=== PATIENT | male | born 1950 | race Caucasian/White ===

== ENCOUNTER 2020-11-29 09:44 | Observation (INO) | payer MEDICARE, SELFPAY ==
[2020-11-29] VITALS (14 sets, daily range): BP systolic 98–176; BP diastolic 55–93; PULSE 59–82; RESP 12–20; TEMP 36.9–37.2; O2SAT 96–100; BMI 20.7; BMI 19.8
--- NOTE | 2020-11-29 09:45 | ECG_ITS ---
APPROVED REPORT Exam: Resting ECG HR:62 bpm ECG Measurements Heart Rate 62 AXES OR 142 P 67 QRSd 104 QRS 61 QT 382 T 63 QTc 387 Conclusion Normal sinus rhythm Moderate voltage criteria for LVH, may be normal variant Borderline ECG Electronically signed by : Sumit Garza, 11/29/2020 17:19:00
--- NOTE | 2020-11-29 09:49 | XR_ITS ---
PROCEDURE: XR CHEST PORTABLE CLINICAL HISTORY: chest pain Left-sided chest pain COMPARISON: No exams were available for comparison FINDINGS: The cardiomediastinal silhouette and pulmonary vascularity are within normal limits. COPD changes. No lobar consolidation or collapse. Calcification noted in the carotid arteries nonspecific. No acute bony abnormalities. IMPRESSION: No acute findings. Dictated by: Monster Bai MD 11/29/2020 12:19 Monster Bai MD in [place] 11/29/2020 12:19
[2020-11-29 10:08] LABS: Basophils % 0.5 % (0.1-2.0); Eosinophils # 0.1 K/mm3 (0.0-0.4); Eosinophils % 0.8 % (0.1-12.0); Hematocrit 41.1 % (42.0-52.0); Hemoglobin 14.1 g/dL (14.1-18.0); Lymphocytes # 1.7 K/mm3 (0.7-4.5); Lymphocytes % 19.6 % (10-50); Mean Corpuscular HGB Conc 34.3 g/dL (31.8-35.4); Mean Corpuscular Hemoglobin 32.5 pg (27.0-31.2); Mean Corpuscular Volume 94.9 fl (80-94); Mean Platelet Volume 7.9 fl (7.4-10.4); Monocytes # 0.8 K/mm3 (0.1-1.0); Monocytes % 8.8 % (1.7-9.3); Neutrophils # 6.1 K/mm3 (1.8-7.8); Neutrophils % 70.4 % (37.0-80.0); Platelet Count 200 K/mm3 (142-424); Red Blood Count 4.33 M/mm3 (4.60-6.20); Red Cell Distribution Width 12.4 % (11.5-17.5); White Blood Count 8.7 K/mm3 (4.8-10.8)
--- NOTE | 2020-11-29 10:11 | HMH.EDGENADL ---
ED Disposition Clinical Impression: Pulmonary infiltrate, Pleural effusion, Pulmonary nodule Pulmonary emboli Qualifiers: Pulmonary embolism type: unspecified Chronicity: acute Acute cor pulmonale presence: without acute cor pulmonale Qualified Code(s): I26.99 - Other pulmonary embolism without acute cor pulmonale Disposition: Admitted as Observation Condition on Discharge: [facility] Critical Care Time: No Attestation: On 11/29/20, the high probability of a clinically significant, sudden or life threatening deterioration of the following system(s) required my full and direct attention, intervention and personal management. The time I documented below is in addition to time spent performing reported procedures but includes the following listed in this critical care notation. Medical Decision Making - Michael Inquiry Pt receiving controlled substance: No Vital Signs: 11/29/20 09:45 11/29/20 10:30 11/29/20 11:30 Temperature 98.9 F Temperature Source Oral Pulse Rate Pulse Rate [Left Radial] 69 59 L 67 Respiratory Rate 18 13 17 Blood Pressure Blood Pressure [Left Arm] 166/93 H 169/89 H 173/88 H Blood Pressure Mean [Left Arm] 117 115 116 Blood Pressure Source Blood Pressure Source [Left Arm] Automatic Cuff Automatic Cuff Automatic Cuff Blood Pressure Position Blood Pressure Position [Left Arm] Sitting Supine Supine 02 Sat by Pulse Oximetry 97 97 97 Oxygen Delivery Method Room Air Room Air Room Air 11/29/20 12:00 11/29/20 13:30 11/29/20 15:00 Temperature Temperature Source Pulse Rate Pulse Rate [Left Radial] 62 82 63 Respiratory Rate 12 13 Blood Pressure Blood Pressure [Left Arm] 143/77 H 98/55 L 144/86 H Blood Pressure Mean [Left Arm] 99 69 105 Blood Pressure Source Blood Pressure Source [Left Arm] Automatic Cuff Automatic Cuff Blood Pressure Position Blood Pressure Position [Left Arm] Supine Supine 02 Sat by Pulse Oximetry 96 100 97 Oxygen Delivery Method Room Air Room Air Room Air 11/29/20 15:30 11/29/20 16:00 11/29/20 16:30 Temperature Temperature Source Pulse Rate Pulse Rate [Left Radial] 81 61 66 Respiratory Rate 18 20 18 Blood Pressure Blood Pressure [Left Arm] 148/79 H Blood Pressure Mean [Left Arm] 102 Blood Pressure Source Blood Pressure Source [Left Arm] Blood Pressure Position Blood Pressure Position [Left Arm] 02 Sat by Pulse Oximetry 100 96 97 Oxygen Delivery Method Room Air Room Air Room Air 11/29/20 16:48 11/29/20 17:00 Temperature 98.7 F Temperature Source Oral Pulse Rate 59 L Pulse Rate [Left Radial] Respiratory Rate 20 Blood Pressure 151/80 H Blood Pressure [Left Arm] Blood Pressure Mean [Left Arm] Blood Pressure Source Automatic Cuff Blood Pressure Source [Left Arm] Blood Pressure Position Sitting Blood Pressure Position [Left Arm] 02 Sat by Pulse Oximetry Oxygen Delivery Method Room Air Room Air - Lab Data Lab Results 11/29/20 09:45: WBC 8.7, RBC 4.33 L, Hgb 14.1, Hct 41.1 L, MCV 94.9 H, MCH 32.5 H, MCHC 34.3, RDW 12.4, Plt Count 200, MPV 7.9, Neut % (Auto) 70.4, Lymph % (Auto) 19.6, [place] % (Auto) 8.8, Eos % (Auto) 0.8, Baso % (Auto) 0.5, Neut # (Auto) 6.1, Lymph # (Auto) 1.7, [place] # (Auto) 0.8, Eos # (Auto) 0.1, Baso # (Auto) 0.0 11/29/20 09:45: Sodium 131 L, Potassium 4.4, Chloride 97 L, Carbon Dioxide 28, Anion Gap 10.4, BUN 10, Creatinine 0.70, Estimated Creat Clear 65, Estimated GFR 112, Est GFR ( Amer) 135, Glucose 118 H, Calcium 9.7, Total Bilirubin 1.6 H, AST 39, ALT 21, Alkaline Phosphatase 74, Troponin I < 0.01, Total Protein 8.0, Albumin 4.5, Globulin 3.5 H, Albumin/Globulin Ratio 1.3 11/29/20 11:26: D-Dimer 1.89 H 11/29/20 13:01: Troponin I < 0.01 11/29/20 13:45: Chlamy pneumoniae PCR Not detected, Adenovirus (PCR) Not detected, B. pertussis DNA (PCR) Not detected, Coronavirus OC43 (PCR) Not detected, Coronavirus HKU1 (PCR) Not detected, Coronavirus 229E (PC
[2020-11-29 10:12] LABS: Alanine Aminotransferase 21 U/L (12-78); Albumin Level 4.5 g/dl (3.5-5.0); Albumin/Globulin Ratio 1.3 (1.1-1.8); Alkaline Phosphatase 74 U/L (38-126); Anion Gap 10.4 mEq/L (5-15); Aspartate Amino Transferase 39 U/L (17-59); Bilirubin,Total 1.6 mg/dl (0.2-1.3); Blood Urea Nitrogen 10 mg/dl (9-20); Calcium 9.7 mg/dl (8.4-10.2); Carbon Dioxide 28 mmol/L (22.0-30.0); Chloride 97 mmol/L (98-107); Creatinine Clearance Estimated 65 mL/min (50-200); Estimated Glomerular Filt Rate 112 ml/min (>60); GFR (African American) 135 ML/MIN (>60); Globulin 3.5 g/dL (1.3-3.2); Glucose 118 mg/dl (74-100); Potassium 4.4 mmoL/L (3.5-5.1); Sodium 131 mmol/L (136-145)
[2020-11-29 10:28] LABS: Troponin I < 0.01 ng/ml (0.00-0.034)
[2020-11-29 11:47] LABS: D-Dimer 1.89 ug/mL (0.0-0.5)
--- NOTE | 2020-11-29 12:09 | CT_ITS ---
PROCEDURE: CT ANGIO CHEST CLINCIAL INDICATION: chest pain, elevated d-dimer COMPARISON: CR XR CHEST PORTABLE from 11/29/2020 TECHNIQUE: IV Contrast: 70ML Isovue 370 Axial images obtained with sagittal and coronal reformats. All CT scans at the facility use one or more dose reduction, viz: automated exposure control, ma/kV adjustment per patient size (including targeted exams where dose is matched to indication, i.e. head), or iterative reconstruction technique. FINDINGS: No large central pulmonary emboli are evident. However, there are filling defects present within the peripheral aspect of a subsegmental branch in the posterior basilar segment of the left lower lobe. Series 2 image two hundred forty-nine through 259 and also within the subsegmental branch within the left upper lobe posteriorly image 204 series 2 and 225 to 241. Small segmental pulmonary embolus present within the right upper lobe anterior segment image 211 series 2. No evidence of aortic aneurysm or dissection. No mediastinal or hilar mass. Coronary artery calcifications noted. COPD changes with scattered areas of scarring noncalcified 6 mm nodules present in the right upper lobe anteriorly series 3, image 38 there is evidence of old granulomatous disease. Atelectatic changes are present in the lower lobes posteriorly. There is a 3 mm noncalcified nodule in the left upper lobe centrally at the apex image 18 There is a small left pleural effusion with patchy airspace disease in the left lower lobe suspicious for mild pneumonitis. There are mild degenerative changes in the thoracic spine. Small nodes are present in the axilla. IMPRESSION: 1. There are small bilateral pulmonary emboli noted. 2. COPD changes with indeterminate 6 mm right upper lobe nodule. Suggest 6 month follow-up 3. Small left effusion with patchy infiltrate in the left lower lobe posteriorly Dictated by: Monster Bai MD 11/29/2020 12:55 Monster Bai MD in [place] 11/29/2020 12:55
[2020-11-29 13:42] LABS: Troponin I < 0.01 ng/ml (0.00-0.034)
[2020-11-29 13:55] LABS: Adenovirus,PCR Not Detected (NotDetected); Bordetella Pertussis Not Detected (NotDetected); Chlamydophila Pneumoniae, PCR Not Detected (NotDetected); Coronavirus 19, PCR Not Detected (NotDetected); Coronavirus 229E Not Detected (NotDetected); Coronavirus NL63 Not Detected (NotDetected); Coronavirus OC43 Not Detected (NotDetected); Coronovirus HKU1,PCR Not Detected (NotDetected); Human Metapneumovirus Not Detected (NotDetected); Influenza A, PCR Not Detected (NotDetected); Influenza AH1, 2009 Not Detected (NotDetected); Influenza AH1, PCR Not Detected (NotDetected); Influenza AH3,PCR Not Detected (NotDetected); Influenza B, PCR Not Detected (NotDetected); Mycoplasma Pneumoniae, PCR Not Detected (NotDetected); Parainfluenza 1, PCR Not Detected (NotDetected); Parainfluenza 2, PCR Not Detected (NotDetected); Parainfluenza 3, PCR Not Detected (NotDetected); Parainfluenza 4, PCR Not Detected (NotDetected); Respiratory Syncytial Virus Not Detected (NotDetected); Rhinovirus/Enterovirus Not Detected (NotDetected)
--- NOTE | 2020-11-29 16:16 | HMH.PHAINT ---
MEDICATION RECONCILIATION COMPLETED ON PATIENT USING EXTERNAL FILL HISTORY FROM PHARMACY. -FAY SHETTY, PREETID
[2020-11-29 16:41] LABS: Troponin I < 0.01 ng/ml (0.00-0.034)
[2020-11-30] VITALS: BP 150/73; PULSE 60; PULSE 64; RESP 16; TEMP 36.8; O2SAT 97
[2020-11-30 04:00] VITALS: BP 132/73; PULSE 60; PULSE 62; RESP 16; TEMP 36.9; O2SAT 98
[2020-11-30 06:07] VITALS: BMI 20.4
[2020-11-30 06:58] LABS: Eosinophils # 0.1 K/mm3 (0.0-0.4); Neutrophils # 4.5 K/mm3 (1.8-7.8); White Blood Count 7.3 K/mm3 (4.8-10.8)
[2020-11-30 07:06] LABS: Basophils # 0.1 K/mm3 (0-0.2); Basophils % 0.7 % (0.1-2.0); Eosinophils % 1.5 % (0.1-12.0); Hematocrit 38.1 % (42.0-52.0); Lymphocytes # 1.9 K/mm3 (0.7-4.5); Lymphocytes % 25.9 % (10-50); Mean Corpuscular HGB Conc 33.3 g/dL (31.8-35.4); Mean Corpuscular Hemoglobin 31.5 pg (27.0-31.2); Mean Corpuscular Volume 94.7 fl (80-94); Mean Platelet Volume 7.9 fl (7.4-10.4); Monocytes # 0.8 K/mm3 (0.1-1.0); Monocytes % 10.3 % (1.7-9.3); Neutrophils % 61.6 % (37.0-80.0); Platelet Count 177 K/mm3 (142-424); Red Blood Count 4.03 M/mm3 (4.60-6.20); Red Cell Distribution Width 12.5 % (11.5-17.5)
[2020-11-30 07:16] LABS: Alanine Aminotransferase 14 U/L (12-78); Albumin Level 3.4 g/dl (3.5-5.0); Albumin/Globulin Ratio 1.1 (1.1-1.8); Alkaline Phosphatase 61 U/L (38-126); Anion Gap 5.2 mEq/L (5-15); Aspartate Amino Transferase 27 U/L (17-59); Bilirubin,Total 0.7 mg/dl (0.2-1.3); Blood Urea Nitrogen 13 mg/dl (9-20); Calcium 8.8 mg/dl (8.4-10.2); Carbon Dioxide 29 mmol/L (22.0-30.0); Chloride 100 mmol/L (98-107); Creatinine Clearance Estimated 64 mL/min (50-200); Estimated Glomerular Filt Rate 96 ml/min (>60); GFR (African American) 116 ML/MIN (>60); Globulin 3.1 g/dL (1.3-3.2); Glucose 104 mg/dl (74-100); Potassium 4.2 mmoL/L (3.5-5.1); Sodium 130 mmol/L (136-145); Total Protein,Serum 6.5 g/dl (6.3-8.2)
[2020-11-30 07:19] LABS: Hemoglobin 12.7 g/dL (14.1-18.0)
[2020-11-30 08:00] VITALS: BP 138/68; PULSE 50; PULSE 62; RESP 18; TEMP 36.9; O2SAT 95; O2SAT 96
--- NOTE | 2020-11-30 08:23 | HMH.HPDC ---
General - General Admission date:: 11/29/20 Discharge date: 11/30/20 *Admission Date: 11/29/20 *Chief complaint: Dyspnea and cough *History of present illness: 70-year-old white male with history of heart murmur and hypertension who follows with Dr. Kohler in [place] on a regular basis for his blood pressure, has no history of hematologic issues or blood clotting, but came to the emergency department with cough, congestion, found to have patchy infiltrate in the left lower lung field. D-dimer was elevated and he was found to have multiple subsegmental PEs on CTA. On further questioning he notes that his sister has told him that she is a carrier of factor V Leiden deficiency and that her son has the disease as well. He notes no previous episodes of venous thromboembolism. Patient was admitted overnight for Lovenox and Xarelto administration. [facility] History I have reviewed the patient's past medical history: Yes Medical History: Reports:: Hypertension, Palpitations Denies:: Cancer, Diabetes Mellitus Type 1, Diabetes Mellitus Type 2, MRSA *Have you ever received a pneumonia vaccine?: No *Have you received a flu vaccine this season?: No Other Surgeries: Yes: No Previous Surgery Amputation: No - *Social History Last grade of school completed: Some college Smoking Status: Current every day smoker Tobacco Type: cigars # Packs/Day (cigarettes): 0 Alcohol Intake: current Alcohol Intake Frequency:: 3 or more drinks per day *Occupational Status:: employed Household Members: none *Travel in the last 8 weeks: None Family Hx:: Tuberculosis, Other Review of Systems - Review of Systems Review of systems:: pertinent systems reviewed and negative unless documented below No GI symptoms, minimal dyspnea but improving. Otherwise 10 point review of systems negative Exam Vital signs and Labs for Last 24 Hours: Temp Pulse Resp BP Pulse Ox 98.5 F 62 18 138/68 96 11/30/20 08:00 11/30/20 08:00 11/30/20 08:00 11/30/20 08:00 11/30/20 08:00 Laboratory Results - last 24 hr 11/29/20 09:45: WBC 8.7, RBC 4.33 L, Hgb 14.1, Hct 41.1 L, MCV 94.9 H, MCH 32.5 H, MCHC 34.3, RDW 12.4, Plt Count 200, MPV 7.9, Neut % (Auto) 70.4, Lymph % (Auto) 19.6, [place] % (Auto) 8.8, Eos % (Auto) 0.8, Baso % (Auto) 0.5, Neut # (Auto) 6.1, Lymph # (Auto) 1.7, [place] # (Auto) 0.8, Eos # (Auto) 0.1, Baso # (Auto) 0.0 11/29/20 09:45: Sodium 131 L, Potassium 4.4, Chloride 97 L, Carbon Dioxide 28, Anion Gap 10.4, BUN 10, Creatinine 0.70, Estimated Creat Clear 65, Estimated GFR 112, Est GFR ( Amer) 135, Glucose 118 H, Calcium 9.7, Total Bilirubin 1.6 H, AST 39, ALT 21, Alkaline Phosphatase 74, Troponin I < 0.01, Total Protein 8.0, Albumin 4.5, Globulin 3.5 H, Albumin/Globulin Ratio 1.3 11/29/20 11:26: D-Dimer 1.89 H 11/29/20 13:01: Troponin I < 0.01 11/29/20 13:45: Chlamy pneumoniae PCR Not detected, Adenovirus (PCR) Not detected, B. pertussis DNA (PCR) Not detected, Coronavirus OC43 (PCR) Not detected, Coronavirus HKU1 (PCR) Not detected, Coronavirus 229E (PCR) Not detected, SARS-CoV-2 (PCR) Not detected, Coronavirus NL63 (PCR) Not detected, Human Metapneumovir PCR Not detected, Influenza A (H1) PCR Not detected, Influ A (H1N1/09) PCR Not detected, Influenza A (H3) PCR Not detected, Influenza Type A (PCR) Not detected, Influenza Type B (PCR) Not detected, M. pneumoniae (PCR) Not detected, Parainfluenza 1 (PCR) Not detected, Parainfluenza 2 (PCR) Not detected, Parainfluenza 3 (PCR) Not detected, Parainfluenza 4 (PCR) Not detected, RSV (PCR) Not detected, Entero/Rhino (PCR) Not detected 11/29/20 16:07: Troponin I < 0.01 11/30/20 06:20: WBC 7.3, RBC 4.03 L, Hgb 12.7 L, Hct 38.1 L, MCV 94.7 H, MCH 31.5 H, MCHC 33.3, RDW 12.5, Plt Count 177, MPV 7.9, Neut % (Auto) 61.6, Lymph % (Auto) 25.9, [place] % (Auto) 10.3 H, Eos % (Auto) 1.5, Baso % (Auto) 0.7, Neut # (Auto) 4.5, Lymph # (Auto) 1.9, [place] # (Auto) 0.8, Eos # (Auto) 0.1, Baso # (Auto) 0.1 11/30/20 06:20: Sodium 130 L, [place]
[2020-12-02 17:54] LABS: Protein C Antigen 72 % (60-150)
[2020-12-03 04:47] LABS: Antithrombin Activity 73 % (75-135)
[2020-12-03 08:23] LABS: Anti-Thrombin III Antigen 57 % (72-124); Factor V Activity 107 % (70-150); Protein S Antigen, Total 54 % (60-150)
== END 2020-11-30 09:47 | disposition home or self-care (01) ==
LOC: ER 13:48 → 2ND 15:50
PROVIDERS: Internal Medicine Adolescent Medicine; Admitting Provider Internal Medicine Adolescent Medicine; Emergency Provider Emergency Medicine; Visit Provider Internal Medicine Adolescent Medicine
DX: I26.99 Other pulmonary embolism without acute cor pulmonale (principal); Z72.0 Tobacco use; R91.1 Solitary pulmonary nodule
CPT/HCPCS: 36415; 71045; 71275; 80053; 84484; 85025; 85220; 85300; 85301; 85302; 85305; 85378; 87581; 87633; 87798; 93005; 99284; G0378; J0456; Q9967

== ENCOUNTER → 2020-12-07 13:07 | Outpatient (CLI) | payer MEDICARE, SELFPAY | PROVIDERS: Visit Provider Internal Medicine Adolescent Medicine | DX: I26.93 Single subsegmental thrombotic pulmonary embolism without acute cor pulmonale (principal); Z83.2 Family history of diseases of the blood and blood-forming organs and certain disorders involving the immune mechanism | CPT/HCPCS: 36415; 81241 ==

== ENCOUNTER → 2020-12-21 14:57 | Outpatient (CLI) | payer MEDICARE, SELFPAY ==
[2020-12-21 16:09] LABS: Basophils % 0.6 % (0.1-2.0); Eosinophils % 0.5 % (0.1-12.0); Hematocrit 38.8 % (42.0-52.0); Hemoglobin 13.6 g/dL (14.1-18.0); Lymphocytes % 31.7 % (10-50); Mean Corpuscular HGB Conc 34.9 g/dL (31.8-35.4); Mean Corpuscular Hemoglobin 32.3 pg (27.0-31.2); Mean Corpuscular Volume 92.6 fl (80-94); Mean Platelet Volume 7.7 fl (7.4-10.4); Monocytes # 0.5 K/mm3 (0.1-1.0); Monocytes % 8.3 % (1.7-9.3); Neutrophils # 3.7 K/mm3 (1.8-7.8); Neutrophils % 58.8 % (37.0-80.0); Platelet Count 205 K/mm3 (142-424); Red Blood Count 4.19 M/mm3 (4.60-6.20); Red Cell Distribution Width 12.5 % (11.5-17.5); White Blood Count 6.3 K/mm3 (4.8-10.8)
[2020-12-21 16:41] LABS: Alanine Aminotransferase 17 U/L (12-78); Albumin Level 4.6 g/dl (3.5-5.0); Albumin/Globulin Ratio 1.5 (1.1-1.8); Alkaline Phosphatase 70 U/L (38-126); Anion Gap 11.9 mEq/L (5-15); Aspartate Amino Transferase 40 U/L (17-59); Bilirubin,Total 1.1 mg/dl (0.2-1.3); Blood Urea Nitrogen 13 mg/dl (9-20); Calcium 9.8 mg/dl (8.4-10.2); Carbon Dioxide 28 mmol/L (22.0-30.0); Chloride 91 mmol/L (98-107); Estimated Glomerular Filt Rate 96 ml/min (>60); GFR (African American) 116 ML/MIN (>60); Glucose 110 mg/dl (74-100); Potassium 4.9 mmoL/L (3.5-5.1); Sodium 126 mmol/L (136-145); Total Protein,Serum 7.6 g/dl (6.3-8.2)
[2020-12-21 17:11] LABS: Thyroid Stimulating Hormone 1.33 uIU/mL (0.465-4.68)
== END ==
PROVIDERS: Visit Provider Internal Medicine Adolescent Medicine
DX: I10 Essential (primary) hypertension (principal); I26.93 Single subsegmental thrombotic pulmonary embolism without acute cor pulmonale; I73.9 Peripheral vascular disease, unspecified
CPT/HCPCS: 36415; 80053; 83735; 84443; 85025

== ENCOUNTER → 2020-12-28 08:13 | Outpatient (CLI) | payer MEDICARE, SELFPAY ==
--- NOTE | 2020-12-28 08:17 | US_ITS ---
APPROVED REPORT Exam Type: Lower Extremity Segmental Pressures Drop Man: Mary Jo Lopez RVT Indications Claudication: Bilaterally Current Smoker CLAUDICATION Risk Factors Hypertension Current Smoker Pressures/Indices Right Indices Left Indices Brachial 136.00 mmHg Brachial 146.00 mmHg Low Thigh 174.00 mmHg 1.19 Low Thigh 179.00 mmHg 1.23 Calf 193.00 mmHg 1.32 Calf 192.00 mmHg 1.32 Ankle(PT) 174.00 mmHg 1.19 Ankle(PT) 178.00 mmHg 1.22 Ankle(DP) 174.00 mmHg 1.19 Ankle(DP) 181.00 mmHg 1.24 Digit 96.00 mmHg 0.66 Digit 106.00 mmHg 0.73 Findings RT ROSANNA:1.19 LT ROSANNA:1.24 RT TBI:0.66 LT TBI:0.73 NORMAL PULSES BILATERALLY NORMAL WAVEFORMS BILATERALLY Conclusion RT ROSANNA:1.19 LT ROSANNA:1.24 RT TBI:0.66 LT TBI:0.73 NORMAL PULSES BILATERALLY NORMAL WAVEFORMS BILATERALLY No evidence significant arterial disease throughout the right and left lower extremities as evidenced by normal resting PVR waveforms and normal resting indices. Electronically signed by : Monster Bai MD 01/02/2021 16:15:22
== END ==
PROVIDERS: PCP Internal Medicine Adolescent Medicine; Visit Provider Internal Medicine Adolescent Medicine
DX: I70.213 Atherosclerosis of native arteries of extremities with intermittent claudication, bilateral legs (principal)
CPT/HCPCS: 93923

== ENCOUNTER 2023-11-18 14:16 | Outpatient (CLI) | payer MEDICARE, SELFPAY ==
--- NOTE | 2023-11-18 14:44 | CT_ITS ---
PROCEDURE INFORMATION: Exam: CTA Chest With Contrast Exam date and time: 11/18/2023 4:15 PM Age: 73 years old Clinical indication: Other: Pe w/o acute cor pulmonale TECHNIQUE: Imaging protocol: Computed tomographic angiography of the chest with contrast. Exam focused on the arteries. 3D rendering (Not supervised by radiologist): MIP and/or 3D reconstructed images were created by the technologist. Radiation optimization: All CT scans at this facility use at least one of these dose optimization techniques: automated exposure control; mA and/or kV adjustment per patient size (includes targeted exams where dose is matched to clinical indication); or iterative reconstruction. Contrast material: ISOVUE; Contrast volume: 70 ml; Contrast route: INTRAVENOUS (IV); COMPARISON: CT ANGIO CHEST 11/29/2020 12:25 PM FINDINGS: Pulmonary arteries: No pulmonary emboli. Aorta: Ectasia of the ascending aorta measures 4.1 cm and is unchanged 11/29/2020. No aneurysmal dilatation or intimal dissection. Lungs: No airspace consolidation or nodules. Calcified granuloma in the right lower lobe. Pleural spaces: No pneumothorax. No pleural effusion. Heart: Left atrium is enlarged. Coronary arteries: Moderate number coronary artery calcifications. Lymph nodes: Calcified vero hepatis lymph nodes are present. Calcified lymph nodes in the right hilum and subcarinal mediastinum. Liver: Liver has a few small calcified granulomas. Spleen: Spleen has calcified granulomas and no mass or surrounding fluid. Bones/joints: Mild anterior compression fracture of T4 has no stranding of paravertebral fat and is of unknown age, but is an interval change since 11/29/2020. Old healed fractures of the posterior left 10th and 11th ribs. No acute fractures or focal bone lesions. Soft tissues: No soft tissue masses. IMPRESSION: 1. No pulmonary emboli. No aortic aneurysm or intimal dissection. 2. Ectasia of the ascending aorta measures 4.1 cm and is unchanged since 11/29/2020. CT scan follow-up in 2 years may be useful if clinically warranted. 3. Left atrial enlargement. 4. Mild compression fracture T4 is an interval change since 11/29/2020. 5. No acute findings in the chest. 6. Evidence of prior granulomatous infection as described above.
[2023-11-18 15:36] LABS: Blood Urea Nitrogen 10 mg/dl (9-20); Estimated Glomerular Filt Rate 95 ml/min (>60); GFR (African American) 115 ML/MIN (>60)
[2023-11-18] MEDS: SODIUM CHLORIDE 0.9% 10ML SYR (RAD ONLY) 10 ML IV (16:33)
[2023-11-18] MEDS: 0.9 % SODIUM CHLORIDE 50 ML VIAL IV (16:33)
[2023-11-18] MEDS: IOPAMIDOL-370 (76%);100ML BOTTLE 70 ML IV (16:33)
== END 2023-11-18 23:59 ==
PROVIDERS: PCP Internal Medicine Adolescent Medicine; Visit Provider Nurse Practitioner Family
DX: I26.99 Other pulmonary embolism without acute cor pulmonale (principal)
CPT/HCPCS: 36415; 71275; 82565; 84520; Q9967

== ENCOUNTER 2024-05-24 14:47 | Emergency (ER) | payer MEDICARE, SELFPAY ==
[2024-05-24] VITALS (8 sets, daily range): BP systolic 140–168; BP diastolic 71–97; PULSE 51–67; RESP 12–16; TEMP 36.7; O2SAT 97–98; BMI 19.8
--- NOTE | 2024-05-24 14:51 | HMH.EDGENADL ---
Discharge Plan Disposition Patient Disposition: Home, Self-Care Condition: Good Prescriptions Prescriptions: No Action lisinopril 10 MG tablet 10 mg PO DAILY doxycycline hyclate 100 MG capsule 100 mg PO BID 10 Days Qty: 20 0RF rivaroxaban 15 MG tablet 15 mg PO BID Qty: 42 0RF Referrals Follow up/Referrals: Sumit Garza MD [Primary Care Provider] - See instructions Activity Restrictions/Add. Instructions Additional Instructions/Restrictions: Please call Dr. Garza's office and schedule follow-up appointment within 48 hours for recheck of your sodium, and also for reinitiation of chronic anticoagulation for your factor V Leiden deficiency. Please call and schedule follow-up with your organic chemistry teacher for further investigation of any potential cardiac causes of your dizziness as well as further evaluation of your enlarging ascending aortic artery as it can kill you if not managed appropriately. Return to ER for any worsening signs or symptoms as needed. Clinical Impressions Clinical Impression: Dizziness, Hyponatremia Instructions Patient Instructions: Combating Dizziness in Older Adults, DI for Hyponatremia Print Language Print Language: Serbian Discharge ED Provider: Dashawn Fitzgerald General Adult HPI <HAYDEN Marroquin - Last Filed: 05/24/24 17:46> General Chief complaint: Recheck/Abnormal Lab/Rx Stated complaint: high b/p, dizzy Time Seen by Provider: 05/24/24 14:51 History of Present Illness HPI narrative: Patient presents for evaluation of initially complaint of high blood pressure and dizziness. Patient states that he thinks his blood pressure is up because he is dizzy. Patient does have a history of hypertension and has been compliant with his medications per his report. Patient reports that for the last few days he has had dizziness particularly when he changes positions from lying to sitting or sitting to standing but has had no nausea vomiting. Patient has had previous episodes of this type of dizziness that have lasted a couple of days several years apart. 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 However several family members including his son and grandson have factor V Leiden deficiency which raises the question whether the patient has it as well. He has never been worked up for a coagulation disorder previously. He also reportedly has a bad heart valve that has been recommended to him to be fixed surgically however patient has deferred that because he does not feel bad . Related Data Home Medications ?Medication ?Instructions ?Recorded ?Confirmed lisinopril 10 mg tablet 10 mg PO DAILY Hypertension 11/29/20 11/29/20 Previous Rx's ?Medication ?Instructions ?Recorded doxycycline hyclate 100 mg capsule 100 mg PO BID 10 days #20 caps 11/30/20 rivaroxaban 15 mg tablet 15 mg PO BID #42 tabs 11/30/20 Allergies Allergy/AdvReac Type Severity Reaction Status Date / Time No Known Allergies Allergy Verified 11/29/20 09:49 PFSH <HAYDEN Marroquin - Last Filed: 05/24/24 17:46> [facility] Disclaimer: The information contained in this section may have been updated after the patient was seen, as this information can be updated by other users. Social History Smoking Status: Current every day smoker tobacco type: cigars alcohol intake: current alcohol intake frequency: 3 or more drinks per day current occupational status: employed Travel in the last 8 weeks: None household members: none <HAYDEN Marroquin - Last Filed: 05/24/24 17:46> ROS Obtained: Yes Systems reviewed as appropriate & no additional complaints except as documented Physical Exam <HAYDEN Marroquin - Last Filed: 05/24/24 17:46> General General appearance: alert and in no apparent distress Head Head exam: atraumatic and normal inspection Eye Eye exam: Present normal appearance, PERRL and EOMI; Absent m
--- NOTE | 2024-05-24 15:02 | CT_ITS ---
PROCEDURE INFORMATION: Exam: CT Chest Without Contrast; Diagnostic Exam date and time: 05/24/2024 3:11 PM Age: 73 years old Clinical indication: Other: Dizziness, high BP TECHNIQUE: Imaging protocol: Diagnostic computed tomography of the chest without contrast. Radiation optimization: All CT scans at this facility use at least one of these dose optimization techniques: automated exposure control; mA and/or kV adjustment per patient size (includes targeted exams where dose is matched to clinical indication); or iterative reconstruction. COMPARISON: 1. CT ANGIO CHEST PE PROTOCOL 11/18/2023 4:[address] ANGIO CHEST 11/29/2020 12:25 PM FINDINGS: Lungs: No lung nodules or airspace consolidation. Calcified granuloma in the right lower lobe. Pleural spaces: No pneumothorax. No pleural effusion. Heart: Left atrial enlargement and left ventricular enlargement. Coronary arteries: Coronary stent in the LAD. Esophagus: No wall thickening or abnormal luminal dilatation. Lymph nodes: Calcified subcarinal and right hilar lymph nodes. Calcified vero hepatis lymph nodes are again noted. Vasculature: Ectasia of the ascending aorta measures 4.1 cm compared to 3.8 cm on 11/18/2023 and 3.6 cm on 11/29/2020. Liver: The liver has a few sub cm low-density nodules that probably represent cysts calcified granulomas are present in the liver and spleen. Bones/joints: Mild anterior wedge fracture of T5 is unchanged since 11/18/2023. Soft tissues: No chest wall masses. IMPRESSION: 1. Ectasia of the ascending aorta measures 4.1 cm compared to 3.8 cm on 11/18/2023 and 3.6 cm on 11/29/2020. Consider CTA of the aorta if clinically warranted. 2. No other acute findings or deleterious interval changes in the chest. 3. Left atrial enlargement and left ventricular enlargement. 4. Prior granulomatous infection. 5. A few sub cm probable liver cysts are unchanged.
--- NOTE | 2024-05-24 15:11 | PC.NURSE ---
pt TO RAD
--- NOTE | 2024-05-24 15:21 | CT_ITS ---
PROCEDURE INFORMATION: Exam: CTA Head With Contrast, Arteriography Exam date and time: 05/24/2024 3:58 PM Age: 73 years old Clinical indication: Dizziness and giddiness; Additional info: Dizziness history of blood clots TECHNIQUE: Imaging protocol: Computed tomographic angiography of the head with contrast. Exam focused on the arteries. 3D rendering (Not supervised by radiologist): MIP and/or 3D reconstructed images were created by the technologist. Radiation optimization: All CT scans at this facility use at least one of these dose optimization techniques: automated exposure control; mA and/or kV adjustment per patient size (includes targeted exams where dose is matched to clinical indication); or iterative reconstruction. Contrast material: ISOVUE 370; Contrast volume: 89 ml; Contrast route: INTRAVENOUS (IV); COMPARISON: CT VENOGRAM HEAD 05/24/2024 3:58 PM FINDINGS: ANTERIOR CIRCULATION: Right internal carotid artery: Intracranial segment is patent with no significant stenosis. No aneurysm. Right middle cerebral artery: No occlusion or significant stenosis. No aneurysm. Right anterior cerebral artery: No occlusion or significant stenosis. No aneurysm. Left internal carotid artery: Intracranial segment is patent with no significant stenosis. No aneurysm. Left middle cerebral artery: No occlusion or significant stenosis. No aneurysm. Left anterior cerebral artery: No occlusion or significant stenosis. No aneurysm. POSTERIOR CIRCULATION: Right vertebral artery: No occlusion or significant stenosis. No aneurysm. Left vertebral artery: No occlusion or significant stenosis. No aneurysm. Basilar artery: No occlusion or significant stenosis. No aneurysm. Right posterior cerebral artery: No occlusion or significant stenosis. No aneurysm. Left posterior cerebral artery: No occlusion or significant stenosis. No aneurysm. Brain: No definite mass, mass effect, or midline shift. Cerebral ventricles: No ventriculomegaly. Bones/joints: Unremarkable. No acute fracture. Soft tissues: Unremarkable. IMPRESSION: No large vessel stenosis or occlusion.
--- NOTE | 2024-05-24 15:21 | CT_ITS ---
PROCEDURE INFORMATION: Exam: CTA Head With Contrast, Venography Exam date and time: 05/24/2024 3:58 PM Age: 73 years old Clinical indication: Dizziness and giddiness; Additional info: Dizziness history of blood clots TECHNIQUE: Imaging protocol: Computed tomography angiography of the head with contrast. Exam focused on the veins. 3D rendering (Not supervised by radiologist): MIP and/or 3D reconstructed images were created by the technologist. Radiation optimization: All CT scans at this facility use at least one of these dose optimization techniques: automated exposure control; mA and/or kV adjustment per patient size (includes targeted exams where dose is matched to clinical indication); or iterative reconstruction. Contrast material: ISOVUE 370; Contrast volume: 89 ml; Contrast route: INTRAVENOUS (IV); COMPARISON: CT ANGIO HEAD 05/24/2024 3:58 PM FINDINGS: Superior sagittal sinus: Patent. Straight sinus: Patent. Transverse sinuses: Patent. Sigmoid sinuses: Patent. Internal jugular veins: Limited visualized internal jugular veins are patent. Brain: No definite mass, mass effect, or midline shift. Cerebral ventricles: No ventriculomegaly. Soft tissues: Unremarkable. IMPRESSION: No venous thrombosis.
--- NOTE | 2024-05-24 15:28 | PC.NURSE ---
PT BACK FROM RAD. STAFF AT BS
--- NOTE | 2024-05-24 15:29 | ECG_ITS ---
APPROVED REPORT Exam: Resting ECG HR:53 bpm ECG Measurements Heart Rate 53 AXES OR 168 P 66 QRSd 106 QRS 71 QT 410 T 71 QTc 392 Conclusion Sinus bradycardia Electronically signed by : VIKTORIA HORTON, 05/24/2024 19:52:25
[2024-05-24 15:36] LABS: Basophils % 0.5 % (0.1-2.0); Eosinophils # 0.1 K/mm3 (0.0-0.4); Eosinophils % 1.8 % (0.1-12.0); Hematocrit 39.4 % (42.0-52.0); Lymphocytes % 32.6 % (10-50); Mean Corpuscular Volume 97.1 fl (80-94); Mean Platelet Volume 8.3 fl (7.4-10.4); Monocytes # 0.5 K/mm3 (0.1-1.0); Monocytes % 7.6 % (1.7-9.3); Neutrophils # 3.6 K/mm3 (1.8-7.8); Neutrophils % 57.5 % (37.0-80.0); Platelet Count 188 K/mm3 (142-424); Red Blood Count 4.05 M/mm3 (4.60-6.20); Red Cell Distribution Width 12.9 % (11.5-17.5); White Blood Count 6.2 K/mm3 (4.8-10.8)
[2024-05-24 15:37] LABS: Chloride 102 mmol/L (98-107)
[2024-05-24 15:38] LABS: Albumin Level 3.7 g/dl (3.5-5.0); Potassium 4.2 mmoL/L (3.5-5.1); Sodium 130 mmol/L (136-145)
[2024-05-24 15:40] LABS: Alanine Aminotransferase 17 U/L (12-78); Aspartate Amino Transferase 30 U/L (17-59); Blood Urea Nitrogen 13 mg/dl (9-20); Creatinine Clearance Estimated 59 mL/min (50-200); Estimated Glomerular Filt Rate 111 ml/min (>60); GFR (African American) 134 ML/MIN (>60)
[2024-05-24 15:41] LABS: Albumin/Globulin Ratio 1.2 (1.1-1.8); Alkaline Phosphatase 59 U/L (38-126); Anion Gap 7.2 mEq/L (5-15); Bilirubin,Total 1.2 mg/dl (0.2-1.3); Calcium 8.4 mg/dl (8.4-10.2); Carbon Dioxide 25 mmol/L (22.0-30.0); Glucose 175 mg/dl (74-100); Magnesium 1.9 mg/dl (1.6-2.3); Total Protein,Serum 6.7 g/dl (6.3-8.2)
== END 2024-05-24 17:55 | disposition home or self-care (01) ==
PROVIDERS: Physician Assistant; Emergency Provider Emergency Medicine; PCP Internal Medicine Adolescent Medicine
DX: R42 Dizziness and giddiness (principal); E87.1 Hypo-osmolality and hyponatremia; I10 Essential (primary) hypertension; R00.1 Bradycardia, unspecified
CPT/HCPCS: 70496; 71250; 80053; 83735; 85025; 93005; 96361; 96374; 96375; 99285; J0131; J1100; J7120; Q9967

== ENCOUNTER 2025-04-26 15:22 | Observation (INO) | payer MEDICARE, SELFPAY ==
[2025-04-26] VITALS (8 sets, daily range): BP systolic 116–156; BP diastolic 61–91; PULSE 45–65; RESP 16–18; TEMP 36.6–36.7; O2SAT 95–100; BMI 19.8
--- NOTE | 2025-04-26 15:31 | CT_ITS ---
FINAL REPORT TECHNIQUE: Thin section axial images were obtained from skull base to vertex without contrast. Coronal reconstruction images were obtained from the axial data. Exam was performed using dose reduction techniques such as automated exposure control, adjustment of the mA and kV according to patient size, and use of iterative reconstruction technique. CLINICAL HISTORY: possible stroke, L facial numbness COMPARISON: none. FINDINGS: There is atrophy. No mass effect or midline shift. No intracranial hemorrhage. No hydrocephalus. Periventricular low density is likely related to changes of chronic small vessel ischemia. The basilar cisterns are preserved. The posterior fossa is without acute abnormality. The soft tissues are without acute abnormality. No acute osseous abnormality is identified. IMPRESSION: No acute intracranial abnormality. Atrophy and changes suggesting chronic small vessel ischemia. Reviewed, Interpreted and Dictated by Enid Price MD Transcribed by HAYDEN Mendez Authenticated and [facility]
--- NOTE | 2025-04-26 15:31 | CT_ITS ---
FINAL REPORT TECHNIQUE: Thin section axial images were obtained through the neck after contrast administration per CT angiogram protocol. Multiplanar reconstruction images were obtained from the axial data. Exam was performed using dose reduction technique. CLINICAL HISTORY: possible stroke, L facial numbness COMPARISON: None FINDINGS: CTA NECK: Aortic arch: There is a normal three-vessel configuration to the aortic arch. There is no significant stenosis of the great vessels at their origins. Right carotid artery: The right common carotid artery is patent without stenosis. There is calcification of the right carotid bulb and proximal right internal carotid artery with 10% stenosis. The remainder of the right internal carotid artery is patent to the skull base. Left carotid artery: The left common carotid artery is patent without stenosis. There is calcification at the bulb and proximal internal carotid artery with 0% stenosis. The remainder of of the internal carotid artery is patent to the skull base. Vertebral arteries: The vertebral arteries are patent bilaterally without stenosis. Other soft tissues: Nothing acute. IMPRESSION: 10% stenosis on the right and 0% stenosis on the left with no large vessel occlusion. Reviewed, Interpreted and Dictated by Enid Price MD Transcribed by Kimberly Mccray Authenticated and [facility]
--- NOTE | 2025-04-26 15:31 | CT_ITS ---
FINAL REPORT TECHNIQUE: Thin section axial images are obtained through the brain after intravenous contrast injection. Multiplanar reconstructions were obtained from the axial data. Exam was performed using dose reduction techniques such as automated exposure control, adjustment of the mA and kV according to patient size, and use of iterative reconstruction technique. CLINICAL HISTORY: possible stroke, L facial numbness COMPARISON: None FINDINGS: The intracerebral portions of the carotid arteries are patent. The anterior and middle cerebral arteries are patent. The posterior cerebral arteries arise from the basilar artery. They are patent. [place] is intact. The basilar artery is patent. The vertebral arteries are patent. There is no significant stenosis, aneurysm, or AVM. IMPRESSION: Unremarkable CT angiogram of the intracerebral vasculature. Reviewed, Interpreted and Dictated by Enid Price MD Transcribed by Kimberly Mccray Authenticated and . [facility]
--- NOTE | 2025-04-26 15:34 | HMH.EDGENADL ---
Discharge Plan Disposition Patient Disposition: Admitted Clinical Impressions Clinical Impression: Stroke-like symptom Discharge ED Provider: Cirilo Tidwell General Adult HPI General Chief complaint: Neuro Symptoms/Deficit Stated complaint: Numbness in left side lips Time Seen by Provider: 04/26/25 15:25 History of Present Illness HPI narrative: Patient is a 74-year-old male with past medical history of previous pulmonary embolism on anticoagulation who presents emergency department for evaluation of perioral numbness. About a month ago he had an episode of left perioral numbness and left upper extremity numbness which spontaneously resolved after about 10 minutes. Over the course of the last week he has had stuttering left-sided perioral numbness that is being, concerning to him because been present here for continued evaluation. No visual complaints no headache, no right-sided problems no motor weakness no gait difficulties no speech difficulties no other acute complaints at this time. Please note that above description of symptoms, in this electronic medical record under categorization of recalled from ER triage doctor by RN are reflective of an initial nursing assessment, however, is not reflective of my full history and physical exam that was personally taken and clarified. Consequentially, this preceding description of symptoms, which may include the patient's categorized chief complaint in the EMR, do not reflect my personal clinical impression, and the ultimate description of history of present illness and patient stated complaints should be deferred to this section of the note. Unless stated otherwise or congruent with this section of the note, additional signs, symptoms, or incongruence should be interpreted as inaccurate with my clinical impression. Related Data Home Medications ?Medication ?Instructions ?Recorded ?Confirmed lisinopril 10 mg tablet 10 mg PO DAILY Hypertension 11/29/20 11/29/20 losartan 100 1 tab PO DAILY 04/26/25 04/26/25 mg-hydrochlorothiazide 25 mg tablet sildenafil 100 mg tablet 100 mg PO NEEDED PRN Sexual 04/26/25 04/26/25 Activity Previous Rx's ?Medication ?Instructions ?Recorded doxycycline hyclate 100 mg capsule 100 mg PO BID 10 days #20 caps 11/30/20 rivaroxaban 15 mg tablet 15 mg PO BID #42 tabs 11/30/20 Allergies Allergy/AdvReac Type Severity Reaction Status Date / Time No Known Allergies Allergy Verified 11/29/20 09:49 [facility] Disclaimer: The information contained in this section may have been updated after the patient was seen, as this information can be updated by other users. Social History Smoking Status: Current every day smoker tobacco type: cigars alcohol intake: current alcohol intake frequency: 3 or more drinks per day current occupational status: employed Travel in the last 8 weeks?: None household members: none Have you lived/traveled outside US in past 30 days?: No Contact w/someone who lives/traveled outside US past 30 days?: No Exposure to someone with infectious disease in past 14 days?: No Do you have a fever (greater than 100.4 F or 38 C)?: No Have you tested positive for COVID-19?: No Exposed to someone with COVID-19 in past 14 days?: No Do you have a sore throat?: No Do you have a cough?: No Do you have any weakness?: No Do you have any diarrhea?: No Are you experiencing any unusual bleeding?: No Do you have any muscle aches/pain?: No Do you have any abdominal pain?: No Are you experiencing loss of taste or smell?: No Other Medical History Have you received the Flu Vaccine for this season: No Have you received the Pneumonia Vaccine: No ROS Obtained: Yes Systems reviewed as appropriate & no additional complaints except as documented Physical Exam General General appearance: alert and in no apparent distress Head Head exam: atraumatic and normocephalic Eye Eye exam: Present PERRL and EOMI ENT ENT exam: Present mucous membranes moist Neck Neck exam: Present normal inspection Chest Chest inspection: Present normal inspection and symmetric chest wall rise Respiratory Respiratory exam: Present normal lung sounds bilaterally; Absent respiratory distress Cardiovascular Cardiovascular exam: Present regular rate and normal rhythm Abdominal Exam Abdominal exam: Present soft; Absent tenderness Extremities Exam Extremities exam: Present normal inspection Neurological Exam Neurological exam: Present alert, oriented X3 and normal gait; Absent CN II-XII intact ([place] sensation left mouth from midline around the left cheek involving the maxilla and mandible but does not extend all the way to the preauricular space.) or motor sensory deficit Psychiatric Psychiatric exam: Present normal affect Skin Skin exam: Present warm and dry Medical Decision Making Medical Records Screening: Per USPSTF and CDC recommendations, given the prevalence of disease in our region, it is our hospital?s policy to screen for HIV and viral Hepatitis for all patients aged 18 and over and those with ongoing risk factors. Michael Inquiry Pt receiving controlled substance: No Vital Signs: 04/26/25 15:24 04/26/25 16:01 04/26/25 16:30 Temperature 98.0 F Temperature Source Oral Pulse Rate 55 L 53 L Pulse Rate [Radial] 65 Respiratory Rate 18 Blood Pressure 121/61 116/71 Blood Pressure [Right Radial Artery] 148/78 H Blood Pressure Mean [Right Radial Artery] 101 Blood Pressure Source [Right Radial Artery] Automatic Cuff Blood Pressure Position [Right Radial Artery] Sitting 02 Sat by Pulse Oximetry 100 98 95 Oxygen Delivery Method Room Air 04/26/25 17:01 04/26/25 18:08 04/26/25 18:14 Temperature 97.9 F Temperature Source Pulse Rate 45 L 60 52 L Pulse Rate [Radial] Respiratory Rate 16 Blood Pressure 123/73 119/70 156/91 H Blood Pressure [Right Radial Artery] Blood Pressure Mean [Right Radial Artery] Blood Pressure Source [Right Radial Artery] Blood Pressure Position [Right Radial Artery] 02 Sat by Pulse Oximetry 98 99 Oxygen Delivery Method Lab Data Lab Results 04/26/25 15:36: WBC 7.3, RBC 4.00 L, Hgb 13.2 L, Hct 36.3 L, MCV 90.8, MCH 33.0 H, MCHC 36.4 H, RDW 11.8, Plt Count 220, MPV 9.8, Neut % (Auto) 55.3, Lymph % (Auto) 32.2, [place] % (Auto) 9.6 H, Eos % (Auto) 1.9, Baso % (Auto) 0.7, Neut # (Auto) 4.0, Lymph # (Auto) 2.4, [place] # (Auto) 0.7, Eos # (Auto) 0.1, Baso # (Auto) 0.1, PT 14.0 H, INR 1.28 H, APTT 33.2 H, Sodium 128 L, Potassium 3.7, Chloride 92 L, Carbon Dioxide 31 H, Anion Gap 8.7, BUN 14, Creatinine 0.90, Estimated GFR 83, Est GFR ( Amer) 100, Glucose 165 H, Calcium 9.6, Total Bilirubin 0.8, AST 36, ALT 19, Alkaline Phosphatase 78, Troponin I < 0.01, Total Protein 7.5, Albumin 4.7, Globulin 2.8, Albumin/Globulin Ratio 1.7, Triglycerides 74, Cholesterol 206 H, LDL Cholesterol Direct 70.88 L, VLDL Cholesterol 15, HDL Cholesterol 104 H, Cholesterol/HDL Ratio 2.0, Plasma/Serum Alcohol < 10, HCV Ab ASHLEE w/Rflx PCR Qn Negative, HIV Ag/Ab Combo Qual Negative 04/26/25 16:44: Urine Color Yellow, Urine Appearance Clear, Urine pH 6.5, Ur Specific [place] <= 1.005, Urine Protein Negative, Urine Glucose (UA) 1+, Urine Ketones Negative, Urine Blood Negative, Urine Nitrate Negative, Urine Bilirubin Negative, Urine Urobilinogen 0.2, Ur Leukocyte Esterase Negative, Urine RBC Occasional, Urine WBC None, Ur Squamous Epith Cells None, Urine Bacteria Trace, Urine Opiates Screen Negative, Urine Methadone Screen Negative, Ur Barbituates Screen Negative, Ur Phencyclidine Scrn Negative, Ur Amphetamines Screen Negative, U Benzodiazepines Scrn Negative, Urine Cocaine Screen Negative, U Marijuana (THC) Screen Negative 04/26/25 15:36 04/26/25 15:36 Orders (Tests/Meds): ED MEDICATIONS Generic Name Dose Route Start Last Admin Trade Name Shady PRN Reason Stop Dose Admin Aspirin 81 mg 04/27/25 09:00 Aspirin Ec 81mg Tablet PO 05/27/25 08:59 DAILY BAO Atorvastatin Calcium 40 mg 04/26/25 21:00 Atorvastatin 40mg Tablet PO 05/26/25 20:59 HS BAO Enoxaparin Sodium 40 mg 04/27/25 09:00 Enoxaparin 40mg/0.4ml Syringe SUBCUT 05/27/25 08:59 DAILY BAO Miscellaneous 1 each 04/26/25 17:17 Consider Pt For Statin At Discharge-Stroke NOTAPPLIC 05/26/25 17:16 NEEDED PRN Reminder for med @discharge Sodium Chloride 10 ml 04/26/25 15:31 Sodium Chloride 0.9% 10ml Flush Syringe IV 05/26/25 15:30 NEEDED PRN Maintain IV Site Discontinued Medications Generic Name Dose Route Start Last Admin Trade Name Shady PRN Reason Stop Dose Admin Aspirin 81 mg 04/26/25 16:56 04/26/25 17:10 Aspirin 81mg Chewable Tablet PO 04/26/25 16:57 81 mg ONCE ONE Administration Iopamidol 80 ml 04/26/25 15:47 04/26/25 15:48 Iopamidol-370 (76%);100ml Bottle IV 04/26/25 15:48 80 ml ONCE ONE Administration Sodium Chloride 10 ml 04/26/25 15:47 04/26/25 15:48 Sodium Chloride 0.9% 10ml Syr (Rad Only) IV 04/26/25 15:48 10 ml ONCE ONE Administration Sodium Chloride 50 ml 04/26/25 15:47 04/26/25 15:48 0.9 % Sodium Chloride 50 Ml Vial IV 04/26/25 15:48 50 ml ONCE ONE Administration ORDERS Category Date Time Status CT angio head Stat Cat Scan 04/26/25 15:[address] angio neck Stat Cat Scan 04/26/25 15:[address] head/brain wo con Stat Cat Scan 04/26/25 15:31 Completed Activated Partial Thrombo Time Stat Lab 04/26/25 15:36 Completed CBC w/Auto Diff [Complete Blood Count Auto Diff] Stat Lab 04/26/25 15:36 Completed Complete Blood Count Auto Diff AMLAB Lab 04/27/25 06:00 Ordered Comprehensive Metabolic Panel AMLAB Lab 04/27/25 06:00 Ordered Comprehensive Metabolic Panel Stat Lab 04/26/25 15:36 Completed Drug Screen,Urine Stat Lab 04/26/25 16:44 Completed Ethyl Alcohol Stat Lab 04/26/25 15:36 Completed HIV Combo Stat Lab 04/26/25 15:36 Completed Hepatitis C Ab Qual. W/ RFX Stat Lab 04/26/25 15:36 Completed Lipid Panel AMLAB Lab 04/27/25 06:00 Ordered Lipid Panel Stat Lab 04/26/25 15:36 Completed Magnesium AMLAB Lab 04/27/25 06:00 Ordered Prothrombin Time INR Stat Lab 04/26/25 15:36 Completed Troponin I Stat Lab 04/26/25 15:36 Completed Urinalysis and Microscopic Stat Lab 04/26/25 16:44 Completed ECG Request Stat Y 04/26/25 15:31 Ordered ECG Data Tracing #1: Independently interpreted by me rate is 49, rhythm is regular, axis is normal, no ST elevation in anatomical contiguous leads, QTc 406 Medical Decision Narrative: In summary patient is a 74-year-old male past medical history described above presents emergency department for evaluation of left-sided facial numbness. Patient is hemodynamically stable nontoxic-appearing upon, afebrile. Given the preceding left upper extremity numbness that spontaneously resolved with resurgence of left-sided perioral numbness my concern for CVA that is stuttering is high. Differential also includes metabolic derangement electrolyte abnormalities, atypical neuropathy, among others. Workup we conducted with hematologic labs EKG noncontrasted CT scan of the head CTA of the head and neck. Patient as well as have a window for thrombolytics. NIH is 1 for left facial sensation changes. Initial workup reviewed by me hematologic labs are nonactionable no significant leukocytosis no MEJIA or critical electrolyte abnormality there is stable hyponatremia, initial troponin undetectably low, alcohol negative. Noncontrasted CT scan of the head informally interpreted by me no acute large intra-axial hemorrhage. Formal read shows no acute intracranial abnormality, atrophy and changes suggestive of chronic vessel ischemia. CTA head neck: Remarkable for 10% stenosis on the right 0% stenosis on the left. Case was discussed with Dr. Llanes regarding management we admit the patient to her service for continued evaluation at this time rule out secondary causes of pathology with an MRI brain and possible modification of risk factors. Critical Care Critical Care Time Critical Care Time: No
--- OUTSIDE RECORDS SUMMARY | 2025-04-26 15:39 | XMS_ITS | Encounter Summary ---
[facility] Address [address] [place] [address] Care Team Providers Care Civil Lawyer Name Role Phone Sumit Garza MD Primary Care Provider + [phone] Reason for Visit * Reason Comments Med Refill Encounter Details Date Type Department Care Team (Late st Contact Info) Description 04/01/2025 Refill [facility] [address] [phone] Camila Gorman APRN [address] [place] [address] Med Refill Social History Tobacco Use Types Packs/Day Years Used Date Smoking Tobacco: Every Day Cigars Passive Smoke Exposure: Current Smokeless Tobacco: Never Alcohol Use Standard Drinks/Week Comments No 0 (1 standard drink = 0.6 oz pur e alcohol) AUDIT-C Answer Date Recorded Frequency of Alcohol Consumption Never 11/11/2018 Average Number of Drinks Not on file 019 Frequency of Binge Drinking Not on file 10/31 Sex and Gender Information Value Date Recorded Sex Assigned at Not on file Legal Sex Male 3:52 PM EDT Gender Identity Not on file Sexual Orientation Not on file 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 Not on file Not on f ile Not on file documented as of this encounter Plan of Treatment Upcoming Encounters Date Type Department Care Team (Late st Contact Info) Description 06/15/2025 9:30 AM EDT Ancillary Procedure [facility] [address] [phone] 06/15/2025 10:30 AM EDT Office Visit [facility] [address] [phone] Camila Gorman, DISTRICT ADVISER [address] [place] [address] 06/24/2025 9:30 AM EDT Office Visit [facility]ARDIOTH[facility] SURGERY [address] [facility] [address] [place] [phone] Philly Kunz, DISTRICT ADVISER [address] [facility] [address] [place] [address] documented as of this encounter Visit Diagnoses Not on filedocumented in this encounter Care Teams Civil Lawyer Relationship Specialty Start Date End Date Sumit Garza MD [address] [facility] [address] [place], [place] [id number] PCP - General Adolescent Medicine 11/07/18 documented as of this encounter
--- OUTSIDE RECORDS SUMMARY | 2025-04-26 15:39 | XMS_ITS | Encounter Summary ---
[facility] [address] [place] [address] Care Team Providers Care State Farm Agent Team Member Name Role Phone Sumit Garza MD Primary Care Provider [phone] Encounter Details Date Type Department Care Team (Late st Contact Info) Description 04/08/2025 Telephone [facility] CARDIOTHORACIC SURGERY [address] [phone] Telly Clemente MD [address] [address] Social History Tobacco Use Types Packs/Day Years [...] on file documented as of this encounter Miscellaneous Notes * Telephone Encounter - Lynnette Olivarez - 04/08/2025 11:45 AM EDT [facility] unable to reach pt to schedule CTA per pts request. Called pt 04/08/25, no VM set up. documented in this encounter Plan of Treatment Upcoming Encounters Date Type Department Care Team (Late st Contact Info) Description 06/15/2025 9:30 AM EDT Ancillary Procedure [facility] [address] [place] [phone] 06/15/2025 10:30 AM EDT Office Visit [facility] [address] [place] [address] [address] [place] [phone] Camila Gorman, DRY STARCH OPERATOR [address] [facility] [place] [address] 06/24/2025 9:30 AM EDT Office Visit [facility] CARDIOTHORACIC SURGERY [address] [facility] [address] [place] [phone] Philly Kunz, DRY STARCH OPERATOR [address] [facility] [address] [place] [address] documented as of this encounter Visit Diagnoses Not on filedocumented in this encounter Care Teams State Farm Agent Team Member Relationship Specialty Start Date End Date Sumit Garza MD [address] [facility] [address] [place] [address] PCP - General Adolescent Medicine 11/07/18 documented as of this encounter
--- OUTSIDE RECORDS SUMMARY | 2025-04-26 15:39 | XMS_ITS | Clinical Summary ---
Author Organization [facility] Address [address] [place] [address] Care Team Providers Care Supervisor Packing Room Name Role Phone Sumit Garza MD Primary Care Provider + [phone] Allergies No known active allergies Medications rivaroxaban (XARELTO) 20 MG tablet Take 1 tablet by mouth Daily. 98 tablet 12/16/19 25 Active sildenafil (Viagra) 100 MG tablet Take one tabs before sexual intercourse as needed 90 tablet 1 12/16/19 25 Active losartan-hydro chlorothiazide (HYZAAR) 100-25 MG per tablet Take 1 tablet by mouth once daily 90 tablet 04/05/20 25 Active losartan-hydro chlorothiazide (Hyzaar) 100-25 MG per tablet Take 1 tablet by mouth Daily. 90 tablet 08/04/20 24 025 Discontinued Active Problems Problem Noted Date Diagnosed Date Hx pulmonary embolism 08/04/2024 Overview (08/04/2024): PCP restarted Xarelto for history of PE. Dr. Garza prescribes and manages. Erectile dysfunction 04/28/2024 Assessment & Plan (12/15/2024 11:13 AM EDT): Increase Viagra to 100mg Mitral valve insufficiency 04/28/2024 Assessment & Plan (12/15/2024 11:12 AM EDT): Patient continues to deny any palpitations, edema, dizziness, or syncope. 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 He is also being followed by [facility] cardiothoracic surgery that I referred him to in case he does end up needing and/or deciding to have valve replacement surgery. Update echo at 6 month follow-up Assessment & Plan (08/04/2024 4:24 PM EST): Echo updated today. Preliminary results are stable. Patient continues to deny any palpitations, edema, dizziness, or syncope. 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 He is also being followed by [facility] cardiothoracic surgery that I referred him to in case he does end up needing and/or deciding to have valve replacement surgery. Pulmonary nodule 08/02/2023 Bradycardia 04/24/2023 Hyperlipidemia 04/24/2023 Hypertension 04/24/2023 Assessment & Plan (08/04/2024 4:28 PM EST): At goal. Continue POC. Pulmonary hypertension 04/24/2023 Mitral valve disorder 11/13/2018 Assessment & Plan (12/15/2024 11:12 AM EDT): Update echo at 6 month follow-up Factor 5 Leiden mutation, heterozygous Overview (08/04/2024): Xarelto- PCP Resolved Problems Problem Noted Date Diagnosed Date Resolved Date Pulmonary embolism without a cute cor pulmonale 11/01/2023 08/04/2024 Pleural effusion 08/02/2023 08/02/2023 Encounters Date Type Department Care Team Description 04/08/2025 Telephone [facility] [address] [place] [address] Telly Clemente MD 04/01/2025 Refill [facility] [address] [phone] Camila Gorman APRN Med Refill from Last 3 Months Immunizations Immunization Administration Dates Next Due Tdap 05/27/2024 Family History Medical History Relation Name Comments Other Father from gunsh ot wound Other Mother does not know m others history Relation Name Status Comments Father Mother Social History Tobacco Use Types Packs/Day Years [...] Not on f ile Not on file Last Filed Vital Signs Vital Sign Reading Time Taken Comments Blood Pressure 142/72 12/15/2024 10:17 AM EDT Pulse 84 12/15/2024 10:17 AM EDT Temperature 36.2 C (97.1 F) 07/28/2024 10:43 AM EDT Respiratory Rate 16 08/04/2024 1:36 PM EST Oxygen Saturation 99% 12/15/2024 10: 17 AM EDT Inhaled Oxygen Concentration - - Weight 61.6 kg (135 lb 12.8 oz) 025 10:17 AM EDT Height 177.8 cm (5' 10 ) 12/15/2024 10: 17 AM EDT Body Mass Index 19.49 12/15/2024 10:17 AM EDT Plan of Treatment Upcoming Encounters Date Type Department Care Team (Late st Contact Info) Description 06/15/2025 9:30 AM EDT Ancillary Procedure [facility] [address] [phone] 06/15/2025 10:30 AM EDT Office Visit [facility] [address] [phone] Camila Gorman APRN [address] [place] [address] 06/24/2025 9:30 AM EDT Office Visit [facility] [address] [place] [phone] Philly Kunz, SCIENTIST [employer]LECT[employer] [address] [facility] [address] [place] [id number] Health Maintenance Due Date Last Done Comments LIPID PANEL 1950 Pneumococcal Vaccine 50+ (1 of 2 - PCV) 1970 COLOGUARD 1996 COLON CANCER SCREENING 5 YEAR SIGMOIDOSCOPY 1996 COLONOSCOPY [address] CANCER SCREENING 1996 CT COLONOGRAPHY 1996 FECAL OCCULT BLOOD TEST 1996 FIT Testing (1 year) 1996 ZOSTER VACCINE (1 of 2) 2001 AAA SCREEN ONCE 2016 ANNUAL WELLNESS VISIT 11/12/2018 HEPATITIS C SCREENING 11/12/2018 COVID-19 Vaccine (2 - season) 05/31/202403/2021 INFLUENZA VACCINE 06/30/2025 TDAP/TD VACCINES (2 - Td or Tdap) 05/27/2034 024 Insurance MEDICARE A & B [facility] OPT[facility] Care Teams Supervisor Packing Room Relationship Specialty Start Date End Date Sumit Garza MD [address] [place] [facility] [address] [place] [address] PCP - General Adolescent Medicine 11/07/18
[2025-04-26 15:46] LABS: Hematocrit 36.3 % (42.0-52.0); Hemoglobin 13.2 g/dL (14.1-18.0); Immature Granulocytes % 0.3 %; Mean Corpuscular HGB Conc 36.4 g/dL (31.8-35.4); Mean Corpuscular Hemoglobin 33.0 pg (27.0-31.2); Mean Corpuscular Volume 90.8 fl (80-94); Nucleated Red Blood Cells % 0 %; Platelet Count 220 K/mm3 (142-424); Red Blood Count 4.00 M/mm3 (4.60-6.20); Red Cell Distribution Width-SD 39.2 fL; White Blood Count 7.3 K/mm3 (4.8-10.8)
--- NOTE | 2025-04-26 15:47 | HMH.ITSTN ---
PER MD CHAVIRA, DO NOT WAIT ON LABS
[2025-04-26] MEDS: 0.9 % SODIUM CHLORIDE 50 ML VIAL IV (15:48)
[2025-04-26] MEDS: SODIUM CHLORIDE 0.9% 10ML SYR (RAD ONLY) 10 ML IV (15:48)
[2025-04-26] MEDS: IOPAMIDOL-370 (76%);100ML BOTTLE 80 ML IV (15:48)
[2025-04-26 15:56] LABS: Alanine Aminotransferase 19 U/L (12-78); Albumin Level 4.7 g/dl (3.5-5.0); Albumin/Globulin Ratio 1.7 (1.1-1.8); Alkaline Phosphatase 78 U/L (38-126); Anion Gap 8.7 mEq/L (5-15); Aspartate Amino Transferase 36 U/L (17-59); Bilirubin,Total 0.8 mg/dl (0.2-1.3); Blood Urea Nitrogen 14 mg/dl (9-20); Calcium 9.6 mg/dl (8.4-10.2); Carbon Dioxide 31 mmol/L (22.0-30.0); Chloride 92 mmol/L (98-107); Cholesterol 206 mg/dl (140-200); Creatinine,Serum 0.90 mg/dl (0.66-1.25); Estimated Glomerular Filt Rate 83 ml/min (>60); GFR (African American) 100 ML/MIN (>60); Globulin 2.8 g/dL (1.3-3.2); Glucose 165 mg/dl (74-100); HDL Cholesterol 104 mg/dl (40-60); Potassium 3.7 mmoL/L (3.5-5.1); Sodium 128 mmol/L (136-145); Total Protein,Serum 7.5 g/dl (6.3-8.2); Triglycerides 74 mg/dl (30-150)
[2025-04-26 16:16] LABS: Troponin I < 0.01 ng/ml (0.00-0.034)
--- NOTE | 2025-04-26 16:29 | ECG_ITS ---
APPROVED REPORT Exam: Resting ECG HR:49 bpm ECG Measurements Heart Rate 49 AXES MO 195 P 74 QRSd 110 QRS 64 QT 435 T 65 QTc 406 Conclusion SINUS BRADYCARDIA VOLTAGE CRITERIA FOR LVH [MEETS CRITERIA IN ONE OF: R(aVL), S(V1), R(V5), R(V5/V6)+S(V1)] ABNORMAL ECG UNCONFIRMED REPORT Electronically signed by : JARAD GARCIA, 04/27/2025 03:50:37
[2025-04-26 16:56] LABS: Activated Partial Thrombo Time 33.2 seconds (22.8-30.6); INR 1.28 (0.9-1.1); Prothrombin Time 14.0 seconds (10.1-12.5)
--- NOTE | 2025-04-26 16:57 | MR_ITS ---
PROCEDURE INFORMATION: Exam: MR Head Without Contrast Exam date and time: 04/26/2025 5:13 PM Age: 74 years old Clinical indication: Stroke-like symptoms; Other: Facial numbness numbness/paresthesia; Additional info: Left sided facial numbness, stroke? TECHNIQUE: Imaging protocol: Magnetic resonance imaging of the head without contrast. COMPARISON: CT ANGIO HEAD 04/26/2025 3:42 PM FINDINGS: Brain: Age-related involutional changes and chronic microvascular ischemic disease. No acute infarct. No mass effect or midline shift. No extra-axial collection. No acute intracranial hemorrhage. Basal cisterns are patent. Cerebral ventricles: Normal. No ventriculomegaly. Bones: Unremarkable. Paranasal sinuses: Normal as visualized. No acute sinusitis. Mastoid air cells: Normal as visualized. No mastoid effusion. Orbital cavities: Unremarkable. Soft tissues: Unremarkable. IMPRESSION: No acute infarct, acute intracranial hemorrhage, or mass effect.
--- NOTE | 2025-04-26 17:01 | EXP.HP ---
History of Present Illness *Admission Date: 04/26/25 *Reason for visit:: Left-sided facial numbness *History of present illness: 74-year-old male with history of factor V Leiden deficiency, hypertension, presents to the ER with intermittent episodes of left-sided facial numbness and tingling over the past month. Most recent episode was today. Came to the ER for further evaluation due to tingling of left side of his face. Denies fusion, focal motor weakness, change in vision. No known trauma. Episodes of happened after being outside working in the heat. First episode a month ago that got better with rest. That episode consisted of left facial numbness and left hand numbness. Improved after hydration and getting out of the heat. Episode a week ago occurred while working outside and gradually got better over the course of the day. Episode today improved after arriving to the ER. Workup including labs and CT and CTA of head obtained. No acute stroke on CT. Medicine consulted for admission to obtain MRI and monitor overnight and consider guideline directed management. On evaluation after arriving to the floor, patient is at baseline level of function. Symptoms more or less resolved. No nausea or vomiting. No shortness of breath. No chest pain. No focal neurologic deficits. Reports taking losartan for hypertension along with HCTZ and Xarelto for factor V Leiden deficiency and history of Artur emboli remotely. [facility] Disclaimer: The information contained in this section may have been updated after the patient was seen, as this information can be updated by other users. Social History Smoking Status: Current every day smoker tobacco type: cigars alcohol intake: current alcohol intake frequency: 3 or more drinks per day current occupational status: employed Travel in the last 8 weeks?: None household members: none Have you lived/traveled outside US in past 30 days?: No Contact w/someone who lives/traveled outside US past 30 days?: No Exposure to someone with infectious disease in past 14 days?: No Do you have a fever (greater than 100.4 F or 38 C)?: No Have you tested positive for COVID-19?: No Exposed to someone with COVID-19 in past 14 days?: No Do you have a sore throat?: No Do you have a cough?: No Do you have any weakness?: No Do you have any diarrhea?: No Are you experiencing any unusual bleeding?: No Do you have any muscle aches/pain?: No Do you have any abdominal pain?: No Are you experiencing loss of taste or smell?: No Other Medical History Have you received the Flu Vaccine for this season: No Have you received the Pneumonia Vaccine: No Review of Systems Review of Systems Review of systems (narrative): 14 point review of systems performed, pertinent positives and negatives as per HPI Meds Home Medications and Allergies Home Medications ?Medication ?Instructions ?Recorded ?Confirmed ?Type rivaroxaban 15 mg tablet 15 mg PO BID #42 tabs 11/30/20 04/26/25 Rx losartan 100 1 tab PO DAILY 04/26/25 04/26/25 History mg-hydrochlorothiazide 25 mg tablet sildenafil 100 mg tablet 100 mg PO NEEDED PRN Sexual 04/26/25 04/26/25 History Activity New Prescriptions to Start Prescriptions: Allergies Allergy/AdvReac Type Severity Reaction Status Date / Time No Known Allergies Allergy Verified 11/29/20 09:49 Exam Data for Last 24 hours Vital signs and Labs for Last 24 Hours: Temp Pulse Resp BP Pulse Ox O2 Del Method 98.0 F 53 L 18 116/71 95 Room Air 04/26/25 15:24 04/26/25 16:30 04/26/25 15:24 04/26/25 16:30 04/26/25 16:30 04/26/25 15:24 Laboratory Results - last 24 hr 04/26/25 15:36: WBC 7.3, RBC 4.00 L, Hgb 13.2 L, Hct 36.3 L, MCV 90.8, MCH 33.0 H, MCHC 36.4 H, RDW 11.8, Plt Count 220, MPV 9.8, Neut % (Auto) 55.3, Lymph % (Auto) 32.2, Barry % (Auto) 9.6 H, Eos % (Auto) 1.9, Baso % (Auto) 0.7, Neut # (Auto) 4.0, Lymph # (Auto) 2.4, Barry # (Auto) 0.7, Eos # (Auto) 0.1, Baso # (Auto) 0.1, PT 14.0 H, INR 1.28 H, APTT 33.2 H, Sodium 128 L, Potassium 3.7, Chloride 92 L, Carbon Dioxide 31 H, Anion Gap 8.7, BUN 14, Creatinine 0.90, Estimated GFR 83, Est GFR ( Amer) 100, Glucose 165 H, Calcium 9.6, Total Bilirubin 0.8, AST 36, ALT 19, Alkaline Phosphatase 78, Troponin I < 0.01, Total Protein 7.5, Albumin 4.7, Globulin 2.8, Albumin/Globulin Ratio 1.7, Triglycerides 74, Cholesterol 206 H, LDL Cholesterol Direct 70.88 L, VLDL Cholesterol 15, HDL Cholesterol 104 H, Cholesterol/HDL Ratio 2.0, Plasma/Serum Alcohol < 10 I & O for Last 24 hours: Intake & Output 04/23/25 04/24/25 04/25/25 04/26/25 23:59 23:59 23:59 23:59 Weight 62.596 kg Constitutional Constitutional: no acute distress, thin and cooperative *Routine HEENT Exam Head: Present normocephalic Eye: Present EOMI and PERRL ENT: Present mucous membranes moist *Routine Neck Exam Neck: Present supple; Absent lymphadenopathy *Routine Respiratory Exam Respiratory: Present CTA bilaterally; Absent rhonchi, wheezes or crackles *Routine Cardiovascular Exam Cardiovascular: Present RRR and murmur *Routine Abdominal Exam Abdominal: Present soft and normoactive bowel sounds; Absent tenderness *Routine Rectal Exam Rectal:: deferred *Routine Genitalia Exam Genitalia:: deferred *Routine Extremities Exam Extremities: Absent cyanosis, clubbing or edema *Routine Skin Exam Skin: Present intact and warm; Absent rash *Routine Neurological Exam Neurological: Present alert, oriented X3, CN II-XII intact, normal reflexes and moving all extremities; Absent sensory deficit, motor deficit, altered mental status or facial asymmetry Assessment and Plan *Assessment and plan (1) Stroke-like symptom: Status: Acute Category: Medical Code(s): R29.90 - Unspecified symptoms and signs involving the nervous system (2) Hyponatremia: Status: Acute Category: Medical Code(s): E87.1 - Hypo-osmolality and hyponatremia (3) Numbness and tingling of left side of face: Status: Acute Category: Medical Code(s): R20.0 - Anesthesia of skin; R20.2 - Paresthesia of skin (4) Hypertension: Status: Acute Category: Medical Code(s): I10 - Essential (primary) hypertension (5) Factor V deficiency: Status: Chronic Category: Medical Code(s): D68.2 - Hereditary deficiency of other clotting factors Plan 74-year-old male with history of factor V Leiden presents with intermittent episodes of left facial numbness and tingling and left hand weakness 1 month ago. Most recent episode of facial tingling and numbness today. Occurred after significant work outside in the heat. Came to the ER for further evaluation. Concern for strokelike symptoms on initial workup. Labs remarkable for hyponatremia. CT obtained showing no acute stroke. Discussed case with ER physician, request admission for full workup including MRI of brain and consideration for guideline directed management. I decided to admit for further care and observation overnight. MRI obtained at admission. Read still pending. Patient has no focal neurologic deficits at this time. Family at bedside. Will monitor overnight for further episodes and initiate regimen pending image findings. Problems addressed as follows: Strokelike symptoms Numbness and tingling of left side of face Factor V Leiden deficiency -Intermittent episodes of left-sided facial tingling. Had left hand numbness 1 month ago. - History of factor V Leiden, on Xarelto 20 mg daily at this time. - CT per my review with CT head and CTA of head shows no acute OK, intracerebral mass, or midline shift. - MRI head obtained without contrast. Awaiting formal read. On pulmonary evaluation I do not appreciate obvious stroke. - Will initiate aspirin 81 mg once. Consider aspirin daily. As he is already on Xarelto, will assess for need for Plavix prior to discharge -As his neuroexam is normal, no indication for speech or PT evals at this time -Allow for permissive hypertension, goal blood pressure systolic less than 180. Holding home blood pressure regimen at this time -Lipid ordered for the morning. Initiate Lipitor 40 mg nightly Hypertension: On losartan and HCTZ. Will discontinue HCTZ. Monitor blood pressure and consider resuming just losartan at discharge Hyponatremia: Unclear exact source however patient's family admits in confidence he drinks regularly. Suspect secondary to his alcohol use. Monitor for improvement with morning labs. Sodium 128. Repeat CBC, CMP, magnesium ordered for the morning. - White count normal at 7.3, hemoglobin 13.2. Kidney function normal with BUN 14, creatinine 0.9. - Glucose elevated 165. TSH and A1c ordered and pending Full code Regular diet Lovenox 40 mg subcu daily
[2025-04-26 17:03] LABS: Microscopic, Urine URINE MICROSCOPIC (MICROSCOPIC)
[2025-04-26 17:09] LABS: Bilirubin,Urine Negative (Negative); Color,Urine YELLOW (Yellow); Glucose,Urine (UA) 1+ (Negative); Ketones,Urine Negative (Negative); Leukocyte Esterase,Urine Negative (Negative); PH,Urine 6.5 (5.0-8.5); Protein,Urine Negative (Negative); Specific Gravity, Urine <= 1.005 (1.005-1.030); Urobilinogen,Urine 0.2 EU/dl (0.2)
[2025-04-26] MEDS: ASPIRIN 81MG CHEWABLE TABLET 81 MG PO (17:10)
--- NOTE | 2025-04-26 17:10 | PC.NURSE ---
PT TO MRI
[2025-04-26 17:31] LABS: Bacteria,Urine Trace /lpf; RBC,Urine Occasional #/hpf (0-3)
[2025-04-26 17:47] LABS: Hepatitis C Ab Qual. W/ RFX NEGATIVE (Negative)
[2025-04-26 17:51] LABS: Amphetamine/Metha Screen,Urine Negative ng/ml (<1000); Barbiturates Screen,Urine Negative ng/ml (<200)
[2025-04-26 17:52] LABS: Benzodiazepines Screen,Urine Negative ng/ml (<200)
[2025-04-26 17:54] LABS: Methadone Screen,Urine Negative ng/ml (<300); Opiate Screen,Urine Negative ng/ml (<300)
[2025-04-26 17:55] LABS: Phencyclidine Screen,Urine Negative ng/ml (<25)
--- NOTE | 2025-04-26 18:02 | PC.NURSE ---
PT RETURNED FROM MRI
--- NOTE | 2025-04-26 18:07 | PC.NURSE ---
Report called to Karie THOMSON
--- NOTE | 2025-04-26 18:19 | PC.NURSE ---
arrived by w/c from ED
[2025-04-26] MEDS: ATORVASTATIN 40MG TABLET 40 MG PO (20:18)
[2025-04-27] VITALS: BP 121/66; PULSE 50; PULSE 54; RESP 17; TEMP 36.5; O2SAT 99
[2025-04-27 04:00] VITALS: BP 130/64; PULSE 50; PULSE 51; RESP 16; TEMP 36.6; O2SAT 98; BMI 19.1
--- NOTE | 2025-04-27 04:04 | PC.NURSE ---
Pt is A&Ox4. Pt is on RA. Pt has had no acute changes overnight. Pt has denied any numbness. Pt not voicing any fuurther concerns. Pt resting with call light in reach. POC ongoing.
[2025-04-27 06:15] LABS: Hematocrit 32.6 % (42.0-52.0); Immature Granulocytes % 0.3 %; Mean Corpuscular HGB Conc 35.0 g/dL (31.8-35.4); Mean Corpuscular Hemoglobin 31.3 pg (27.0-31.2); Mean Corpuscular Volume 89.6 fl (80-94); Nucleated Red Blood Cells % 0 %; Platelet Count 164 K/mm3 (142-424); Red Blood Count 3.64 M/mm3 (4.60-6.20); Red Cell Distribution Width-SD 38.3 fL; White Blood Count 6.4 K/mm3 (4.8-10.8)
[2025-04-27 06:27] LABS: Alanine Aminotransferase 14 U/L (12-78); Albumin Level 3.4 g/dl (3.5-5.0); Albumin/Globulin Ratio 1.5 (1.1-1.8); Alkaline Phosphatase 64 U/L (38-126); Anion Gap 3.7 mEq/L (5-15); Aspartate Amino Transferase 26 U/L (17-59); Bilirubin,Total 0.6 mg/dl (0.2-1.3); Blood Urea Nitrogen 12 mg/dl (9-20); Calcium 8.7 mg/dl (8.4-10.2); Carbon Dioxide 32 mmol/L (22.0-30.0); Chloride 97 mmol/L (98-107); Cholesterol 162 mg/dl (140-200); Creatinine Clearance Estimated 56 mL/min (50-200); Creatinine,Serum 0.70 mg/dl (0.66-1.25); Estimated Glomerular Filt Rate 111 ml/min (>60); GFR (African American) 134 ML/MIN (>60); Globulin 2.3 g/dL (1.3-3.2); Glucose 99 mg/dl (74-100); HDL Cholesterol 74 mg/dl (40-60); Magnesium 1.9 mg/dl (1.6-2.3); Potassium 3.7 mmoL/L (3.5-5.1); Sodium 129 mmol/L (136-145); Total Protein,Serum 5.7 g/dl (6.3-8.2); Triglycerides 51 mg/dl (30-150)
[2025-04-27 06:36] LABS: Hemoglobin 11.8 g/dL (14.1-18.0)
--- NOTE | 2025-04-27 06:49 | PC.NURSE ---
patient prefers diet mt dew over water, no water pitcher filled per request.
[2025-04-27 06:57] LABS: Thyroid Stimulating Hormone 2.17 uIU/mL (0.465-4.68)
--- NOTE | 2025-04-27 07:53 | HMH.PHAINT1 ---
Pharmacy Intervention Comments: MEDICATION RECONCILIATION COMPLETED ON PATIENT USING EXTERNAL FILL HISTORY FROM PHARMACY. -FAY SHETTY, PREETID
[2025-04-27 08:00] VITALS: BP 136/70; PULSE 56; PULSE 70; RESP 18; TEMP 36.6; O2SAT 98
[2025-04-27] MEDS: ASPIRIN EC 81MG TABLET 81 MG PO (08:07)
[2025-04-27 08:24] LABS: Hemoglobin A1C 4.7 % (4.0-6.0)
--- NOTE | 2025-04-27 09:56 | P.DS_ITS ---
<Statement entered by Kee Smith MD - 04/27/25 15:02> Rounded on patient after nurse practitioner. Personally examined and interviewed patient. Agree with exam findings and care plan as documented. General Admission date:: 04/26/25 Discharge date: 04/27/25 HPI HPI HPI: 74-year-old male with history of factor V Leiden deficiency, hypertension, presents to the ER with intermittent episodes of left-sided facial numbness and tingling over the past month. Most recent episode was today. Came to the ER for further evaluation due to tingling of left side of his face. Denies fusion, focal motor weakness, change in vision. No known trauma. Episodes of happened after being outside working in the heat. First episode a month ago that got better with rest. That episode consisted of left facial numbness and left hand numbness. Improved after hydration and getting out of the heat. Episode a week ago occurred while working outside and gradually got better over the course of the day. Episode today improved after arriving to the ER. Workup including labs and CT and CTA of head obtained. No acute stroke on CT. Medicine consulted for admission to obtain MRI and monitor overnight and consider guideline directed management. On evaluation after arriving to the floor, patient is at baseline level of function. Symptoms more or less resolved. No nausea or vomiting. No shortness of breath. No chest pain. No focal neurologic deficits. Reports taking losartan for hypertension along with HCTZ and Xarelto for factor V Leiden deficiency and history of Artur emboli remotely. Hospital Course Hospital Course Hospital Course: 74-year-old male with history of factor V Leiden presents with intermittent episodes of left facial numbness and tingling and left hand weakness 1 month ago. Most recent episode of facial tingling and numbness yesterday. Occurred after significant work outside in the heat. Came to the ER for further evaluation. Concern for strokelike symptoms on initial workup. Labs remarkable for hyponatremia. CT obtained showing no acute stroke. Discussed case with ER physician, request admission for full workup including MRI of brain and consideration for guideline directed management. Patient was admitted for further care and observation overnight. MRI obtained at admission. Brain MRI reads no acute infarct, acute intracranial hemorrhage, or mass effect. Patient has no focal neurologic deficits during his admission. Family at bedside. Jorge sebastian were addressed as follows: #Strokelike symptoms #Numbness and tingling of left side of face #Factor V Leiden deficiency -Intermittent episodes of left-sided facial tingling. Had left hand numbness 1 month ago. Denies any more episodes of facial tingling since admission. States he feels back to baseline. - History of factor V Leiden, on Xarelto 20 mg daily at this time. Continue Xarelto 20 mg daily at discharge. - Patient had neck CTA, head CTA, head CT all of which were unremarkable, atrophy and changes suggesting chronic small vessel ischemia noted on head CT. No acute findings. - MRI head obtained without contrast. Awaiting formal read. On pulmonary evaluation I do not appreciate obvious stroke. ?Patient is independent, currently still works. No need for PT/OT at this time. -Lipid panel ordered, LDL 53, goal less than 55. Will start on Lipitor 40 at bedtime due to risk factors. #Hypertension #Hyponatremia ? Patient home med of losartan/HCTZ at 100-25 mg daily currently. Will change to losartan 100 mg daily. HCTZ may be contributing to his hyponatremia. ?Patient states that he does drink regularly. Sodium at discharge 129. Discussed with patient the importance of regular hydration electrolyte replacement. He does state that he works in the heat and occasionally feels like he is getting dehydrated. Discussed electrolyte replacement drinks. ?TSH within normal limits, 2.17. A1c 4.7%. Total time spent on discharge 32 minutes in counseling, documentation, chart review, and direct care with patient. Exam Data for Last 24 hours Vital signs and Labs for Last 24 Hours: Temp Pulse Resp BP Pulse Ox O2 Del Method 97.8 F 56 L 18 136/70 98 Room Air 04/27/25 08:00 04/27/25 08:00 04/27/25 08:00 04/27/25 08:00 04/27/25 08:00 04/27/25 09:00 Laboratory Results - last 24 hr 04/26/25 15:36: WBC 7.3, RBC 4.00 L, Hgb 13.2 L, Hct 36.3 L, MCV 90.8, MCH 33.0 H, MCHC 36.4 H, RDW 11.8, Plt Count 220, MPV 9.8, Neut % (Auto) 55.3, Lymph % (Auto) 32.2, [place]ville % (Auto) 9.6 H, Eos % (Auto) 1.9, Baso % (Auto) 0.7, Neut # (Auto) 4.0, Lymph # (Auto) 2.4, [place]ville # (Auto) 0.7, Eos # (Auto) 0.1, Baso # (Auto) 0.1, PT 14.0 H, INR 1.28 H, APTT 33.2 H, Sodium 128 L, Potassium 3.7, Chloride 92 L, Carbon Dioxide 31 H, Anion Gap 8.7, BUN 14, Creatinine 0.90, Estimated GFR 83, Est GFR ( Amer) 100, Glucose 165 H, Calcium 9.6, Total Bilirubin 0.8, AST 36, ALT 19, Alkaline Phosphatase 78, Troponin I < 0.01, Total Protein 7.5, Albumin 4.7, Globulin 2.8, Albumin/Globulin Ratio 1.7, Triglycerides 74, Cholesterol 206 H, LDL Cholesterol Direct 70.88 L, VLDL Cholesterol 15, HDL Cholesterol 104 H, Cholesterol/HDL Ratio 2.0, Plasma/Serum Alcohol < 10, HCV Ab ASHLEE w/Rflx PCR Qn Negative, HIV Ag/Ab Combo Qual Negative 04/26/25 16:44: Urine Color Yellow, Urine Appearance Clear, Urine pH 6.5, Ur Specific Eaton <= 1.005, Urine Protein Negative, Urine Glucose (UA) 1+, Urine Ketones Negative, Urine Blood Negative, Urine Nitrate Negative, Urine Bilirubin Negative, Urine Urobilinogen 0.2, Ur Leukocyte Esterase Negative, Urine RBC Occasional, Urine WBC None, Ur Squamous Epith Cells None, Urine Bacteria Trace, Urine Opiates Screen Negative, Urine Methadone Screen Negative, Ur Barbituates Screen Negative, Ur Phencyclidine Scrn Negative, Ur Amphetamines Screen Negative, U Benzodiazepines Scrn Negative, Urine Cocaine Screen Negative, U Marijuana (THC) Screen Negative 04/27/25 06:07: WBC 6.4, RBC 3.64 L, Hgb 11.8 L D, Hct 32.6 L, MCV 89.6, MCH 31.3 H, MCHC 35.0, RDW 11.8, Plt Count 164 D, MPV 9.8, Neut % (Auto) 49.8, Lymph % (Auto) 33.3, Granville % (Auto) 11.1 H, Eos % (Auto) 4.7, Baso % (Auto) 0.8, Neut # (Auto) 3.2, Lymph # (Auto) 2.1, Granville # (Auto) 0.7, Eos # (Auto) 0.3, Baso # (Auto) 0.1, Sodium 129 L, Potassium 3.7, Chloride 97 L, Carbon Dioxide 32 H, Anion Gap 3.7 L, BUN 12, Creatinine 0.70 D, Estimated Creat Clear 56, Estimated GFR 111, Est GFR ( Amer) 134 D, Glucose 99 D, Hemoglobin A1c 4.7, Calcium 8.7, Magnesium 1.9, Total Bilirubin 0.6, AST 26 D, ALT 14 D, Alkaline Phosphatase 64, Total Protein 5.7 L, Albumin 3.4 L D, Globulin 2.3, Albumin/Globulin Ratio 1.5, Triglycerides 51, Cholesterol 162, LDL Cholesterol Direct 53.65 L, VLDL Cholesterol 10, HDL Cholesterol 74 H, Cholesterol/HDL Ratio 2.2, TSH 2.17 I & O for Last 24 hours: Intake & Output 04/24/25 04/25/25 04/26/25 04/27/25 23:59 23:59 23:59 23:59 Intake Total 480 / 480 Output Total 0 / 0 Balance 480 / 480 Weight 62.596 kg 60.464 kg Constitutional Constitutional: no acute distress, thin, chronically ill appearing and cooperative *Routine HEENT Exam Head: Present normocephalic ENT: Present mucous membranes moist Comments: Poor dentition *Routine Neck Exam Neck: Present supple and full ROM *Routine Respiratory Exam Respiratory: Present CTA bilaterally, able to speak in complete sentences and symmetric chest movement; Absent wheezes or crackles *Routine Cardiovascular Exam Cardiovascular: Present Normal S1, Normal S2 and bradycardia; Absent murmur *Routine Abdominal Exam Abdominal: Present soft and normoactive bowel sounds; Absent tenderness or distended *Routine Extremities Exam Extremities: Absent clubbing or edema *Routine Skin Exam Skin: Present intact and dry *Routine Neurological Exam Neurological: Present alert, oriented X3, vision grossly intact and hearing grossly intact Results Data Completed and Pending Labs on day of discharge: Labs from last 24 hours 04/27/25 04/26/25 04/26/25 06:07 16:44 15:36 WBC 6.4 7.3 RBC 3.64 L 4.00 L Hgb 11.8 L D 13.2 L Hct 32.6 L 36.3 L MCV 89.6 90.8 MCH 31.3 H 33.0 H MCHC 35.0 36.4 H RDW 11.8 11.8 Plt Count 164 D 220 MPV 9.8 9.8 Neut % (Auto) 49.8 55.3 Lymph % (Auto) 33.3 32.2 Granville % (Auto) 11.1 H 9.6 H Eos % (Auto) 4.7 1.9 Baso % (Auto) 0.8 0.7 Neut # (Auto) 3.2 4.0 Lymph # (Auto) 2.1 2.4 Granville # (Auto) 0.7 0.7 Eos # (Auto) 0.3 0.1 Baso # (Auto) 0.1 0.1 PT 14.0 H INR 1.28 H APTT 33.2 H Sodium 129 L 128 L Potassium 3.7 3.7 Chloride 97 L 92 L Carbon Dioxide 32 H 31 H Anion Gap 3.7 L 8.7 BUN 12 14 Creatinine 0.70 D 0.90 Estimated Creat Clear 56 Estimated GFR 111 83 Est GFR ( Amer) 134 D 100 Glucose 99 D 165 H Hemoglobin A1c 4.7 Calcium 8.7 9.6 Magnesium 1.9 Total Bilirubin 0.6 0.8 AST 26 D 36 ALT 14 D 19 Alkaline Phosphatase 64 78 Troponin I < 0.01 Total Protein 5.7 L 7.5 Albumin 3.4 L D 4.7 Globulin 2.3 2.8 Albumin/Globulin Ratio 1.5 1.7 Triglycerides 51 74 Cholesterol 162 206 H LDL Cholesterol Direct 53.65 L 70.88 L VLDL Cholesterol 10 15 HDL Cholesterol 74 H 104 H Cholesterol/HDL Ratio 2.2 2.0 TSH 2.17 Urine Color Yellow Urine Appearance Clear Urine pH 6.5 Ur Specific Eaton <= 1.005 Urine Protein Negative Urine Glucose (UA) 1+ Urine Ketones Negative Urine Blood Negative Urine Nitrate Negative Urine Bilirubin Negative Urine Urobilinogen 0.2 Ur Leukocyte Esterase Negative Urine RBC Occasional Urine WBC None Ur Squamous Epith Cells None Urine Bacteria Trace Urine Opiates Screen Negative Urine Methadone Screen Negative Ur Barbituates Screen Negative Ur Phencyclidine Scrn Negative Ur Amphetamines Screen Negative U Benzodiazepines Scrn Negative Urine Cocaine Screen Negative U Marijuana (THC) Screen Negative Plasma/Serum Alcohol < 10 HCV Ab ASHLEE w/Rflx PCR Qn Negative HIV Ag/Ab Combo Qual Negative DS: Diagnosis Discharge Diagnosis (1) Stroke-like symptom: Status: Acute Code(s): R29.90 - Unspecified symptoms and signs involving the nervous system (2) Hyponatremia: Status: Acute Code(s): E87.1 - Hypo-osmolality and hyponatremia (3) Numbness and tingling of left side of face: Status: Acute Code(s): R20.0 - Anesthesia of skin; R20.2 - Paresthesia of skin (4) Hypertension: Status: Acute Code(s): I10 - Essential (primary) hypertension (5) Factor V deficiency: Status: Chronic Code(s): D68.2 - Hereditary deficiency of other clotting factors (6) Pulmonary emboli: Status: Chronic Code(s): I26.99 - Other pulmonary embolism without acute cor pulmonale Qualifiers: Acute cor pulmonale presence: without acute cor pulmonale Chronicity: acute Pulmonary embolism type: unspecified Qualified Code(s): I26.99 - Other pulmonary embolism without acute cor pulmonale Meds Home Medications and Allergies Home Medications ?Medication ?Instructions ?Recorded ?Confirmed ?Type sildenafil 100 mg tablet 100 mg PO NEEDED PRN Sexu al 04/26/25 04/26/25 History Activity atorvastatin 40 mg tablet 40 mg PO HS 30 days #30 tabs 04/27/25 Rx losartan 100 mg tablet 100 mg PO DAILY #30 tabs Rx rivaroxaban 20 mg tablet 20 mg PO QPMWITHMEAL 30 days #30 04/27/25 Rx tabs New Prescriptions to Start Prescriptions: atorvastatin Jessika Moya losartan Jessika Moya rivaroxaban Jessika Moya Allergies Allergy/AdvReac Type Severity Reaction Status Date / Time No Known Allergies Allergy Verified 11/29/20 09:49 Discharge Plan Disposition Patient Disposition: Home, Self-Care Condition: Fair Follow up Plan Follow up with: Sumit Garza MD [Primary Care Provider, Internal Medicine] - 04/28/25 10:15 am Referral Note: pt has apt tomorrow Prescriptions/Medication Reconciliation: New losartan 100 mg tablet 100 mg PO DAILY Qty: 30 2RF atorvastatin 40 mg Tablet 40 mg PO HS 30 Days Qty: 30 2RF Continued sildenafil 100 mg tablet 100 mg PO NEEDED PRN (Reason: Sexual Activity) rivaroxaban 20 mg Tablet 20 mg PO QPMWITHMEAL 30 Days Qty: 30 2RF Discontinued losartan-hydrochlorothiazide 100-25 mg tablet 1 tab PO DAILY Patient Comments: TAKE 1 TABLET BY MOUTH ONCE DAILY Problem Reconciliation Problems Reviewed?: Yes Patient Discharge Instructions ACTIVITY: Continue current activity DIET: continue same diet Patient Instructions: Progress in Stroke Prevention, Stroke (Alternative Therapy), DI for Numbness/Tingling Print Language: Bangladeshi Providers Primary Care Provider: Sumit Garza Admit Provider: Kee Smith Attending Provider: Kee Smith
--- NOTE | 2025-04-28 10:29 | SW/DCPLANNER ---
Spoke with patient on the phone. Patient stated that he is doing good. Patient stated that he is at his upcoming appointment. Patient stated that he was able to get his new medicine [facility]. Patient stated that he has no concerns or questions at this time. Judy Drew
== END 2025-04-27 11:36 | disposition home or self-care (01) ==
LOC: ER 15:55 → 2ND 18:06
PROVIDERS: Admitting Provider Internal Medicine Adolescent Medicine; Emergency Provider Emergency Medicine; PCP Internal Medicine Adolescent Medicine; Visit Provider Internal Medicine Adolescent Medicine
DX: R29.90 Unspecified symptoms and signs involving the nervous system (principal); R20.2 Paresthesia of skin; I26.99 Other pulmonary embolism without acute cor pulmonale; R00.1 Bradycardia, unspecified; E87.1 Hypo-osmolality and hyponatremia; I10 Essential (primary) hypertension; F17.210 Nicotine dependence, cigarettes, uncomplicated; R20.0 Anesthesia of skin; D68.2 Hereditary deficiency of other clotting factors; Z79.01 Long term (current) use of anticoagulants; Z79.899 Other long term (current) drug therapy
CPT/HCPCS: 70450; 70496; 70498; 70551; 80053; 80061; 80307; 80320; 81001; 83036; 83735; 84443; 84484; 85025; 85610; 85730; 86803; 87389; 93005; 99285; G0378; Q9967

== ENCOUNTER 2025-08-20 11:19 | Outpatient (CLI) | payer MEDICARE, SELFPAY ==
--- OUTSIDE RECORDS SUMMARY | 2025-06-23 11:30 | XMS_ITS | Encounter Summary ---
Author Organization [facility] Address [address] [place] [address] Care Team Providers Care Chiropractic Doctor Name Role Phone Sumit Garza MD Primary Care Provider + [phone] Reason for Visit * Diagnostic Imaging (Routine) - Closed Specialty Diagnoses / Procedures Referred By Contac t Referred To Contact Diagnoses Mitral valve disorder Mitral valve insufficiency, unspecified etiology Procedures Adult Transthoracic Echo Complete W/ Cont if Necessary Per Protocol Camila Gorman APRN [address] [place] [address] Phone: tel: fax: [facility] [address] [place] [address] Phone: tel: fax: Referral ID Status Reason Start Date Expiration Date Visits Re quested Visits Authorized [id number] Closed 12/15/2024 03/16/2026 1 1 Encounter Details Date Type Department Care Team (Latest Contact Info) Description 06/23/2025 12:30 PM EDT Ancillary Procedure [facility] [address] [place] [address] [place] [id number] Mitral valve disorder; Mitral valve insufficiency, unspecified etiology Social History Tobacco Use Types Packs/Day Years [...] on file documented as of this encounter Last Filed Vital Signs Vital Sign Reading Time Taken Comments Blood Pressure 141/73 06/23/2025 12:19 PM EDT Pulse - - Temperature - - Respiratory Rate - - Oxygen Saturation - - Inhaled Oxygen Concentration - - Weight 61.7 kg (136 lb) 06/23/2025 12:19 PM EDT Height 177.8 cm (5' 10 ) 06/23/2025 12:19 PM EDT Body Mass Index 19.51 06/23/2025 12:19 PM EDT documented in this encounter Plan of Treatment Upcoming Encounters Date Type Department Care Team (Late st Contact Info) Description 12/22/2025 12:30 PM EDT Ancillary Procedure [facility] [place] [id number] 12/22/2025 1:30 PM EDT Office Visit [facility] [place] [phone] Camila Gorman APRN [address] [place] [address] documented as of this encounter Procedures Procedure Name Priority Date/Time Associated Diagnosis Comments ECHO COMPLETE W/ DOPPLER AND COLOR FLOW Routine 06/23/2025 1:12 PM EDT Mitral valve disorder Mitral valve insufficiency, unspecified etiology documented in this encounter Results * ECHO COMPLETE W/ DOPPLER AND COLOR FLOW (06/23/2025 1:12 PM EDT) EF(MOD-bp) 65.6 % LVIDd 5.6 cm LVIDs 3.6 cm IVSd 1.32 cm LVPWd 1.32 cm FS 35.1 % IVS/LVPW 1.00 cm ESV(cubed) 47.0 ml LV Sys Vol (BSA corrected) 43.3 cm2 EDV(cubed) 171.9 ml LV Sanz Vol (BSA corrected) 111.2 cm2 LV mass(C)d 316.3 grams LVOT area 3.5 cm2 LVOT diam 2.10 cm EDV(MOD-sp2) 209.0 ml EDV(MOD-sp4) 197.0 ml ESV(MOD-sp2) 67.7 ml ESV(MOD-sp4) 76.7 ml SV(MOD-sp2) 141.3 ml SV(MOD-sp4) 120.3 ml SVi(MOD-SP2) 79.8 ml/m2 SVi(MOD-SP4) 67.9 ml/m2 SVi (LVOT) 48.1 ml/m2 EF(MOD-sp2) 67.6 % EF(MOD-sp4) 61.1 % MV E max jamin 155.0 cm/sec MV A max jamin 92.3 cm/sec MV dec time 0.32 sec MV E/A 1.68 IVRT 121.0 ms Med Peak E' Jamin 8.9 cm/sec Lat Peak E' Jamin 15.3 cm/sec TR max jamin 272.0 cm/sec Avg E/e' ratio 12.81 SV(LVOT) 85.2 ml RVIDd 2.9 cm RV Base 3.4 cm RV Mid 3.3 cm RV Length 7.5 cm TAPSE (>1.6) 2.20 cm RV S' 14.8 cm/sec LA dimension (2D) 5.0 cm LV V1 max 152.0 cm/sec LV V1 max PG 9.2 mmHg LV V1 mean PG 5.0 mmHg LV V1 VTI 24.6 cm Ao pk ajmin 178.5 cm/sec Ao max PG 12.9 mmHg Ao mean PG 7.5 mmHg Ao V2 VTI 26.6 cm KENNY(I,D) 3.2 cm2 Dimensionless Index 0.93 (DI) MV max PG 11.3 mmHg MV mean PG 4.0 mmHg MV V2 VTI 50.9 cm MV P1/2t 85.2 msec MVA(P1/2t) 2.6 cm2 MVA(VTI) 1.67 cm2 MV dec slope 522.5 cm/sec2 MR max jamin 535.0 cm/sec MR max PG 114.5 mmHg MR mean jamin 410.0 cm/sec MR mean PG 75.0 mmHg MR VTI 135.0 cm TR max PG 29.6 mmHg RVSP(TR) 32.6 mmHg RAP systole 3.0 mmHg PA V2 max 97.6 cm/sec PI end-d jamin 127.0 cm/sec Ao root diam 4.0 cm Sinus 4.2 cm Ascending aorta 4.0 cm LV GLOBAL STRAIN 28.0 % Aortic arch 3.2 cm LA ESV Index (BP) 55.0 ml/m2 Anatomical Region Laterality Modality Ultrasound Narrative 06/24/2025 5:25 PM EDT Left ventricular systolic function is normal. Calculated left ventricular EF = 65.6% Left ventricular ejection fraction appears to be 61 - 65%. Left ventricular diastolic function was indeterminate. Severe mitral valve regurgitation is present. Estimated right ventricular systolic pressure from tricuspid regurgitation is normal (<35 mmHg). Mild dilation of the aortic root is present. Mild dilation of the sinuses of Valsalva is present. Mild dilation of the proximal aorta is present. Mild dilation of the ascending aorta is present. Left Ventricle Left ventricular systolic function is normal. Calculated left ventricular EF = 65.6% Left ventricular ejection fraction appears to be 61 - 65%. Normal global longitudinal LV strain (GLS) = 28.0%. Normal left ventricular cavity size noted. Left ventricular wall thickness is consistent with mild concentric hypertrophy. All left ventricular wall segments contract normally. Left ventricular diastolic function was indeterminate. Right Ventricle Normal right ventricular cavity size, wall thickness, systolic function and septal motion noted. Left Atrium Left atrial volume is severely increased. Cannot exclude the presence of an atrial septal defect. Right Atrium Normal right atrial cavity size noted. Right atrial volume is 48 ml. Mitral Valve Mitral annular calcification is present. There are myxomatous changes of the mitral valve apparatus present. There is moderate bileaflet mitral valve prolapse present. Severe mitral valve regurgitation is present. No significant mitral valve stenosis is present. Tricuspid Valve The tricuspid valve is structurally normal with no significant stenosis present. Mild tricuspid valve regurgitation is present. Estimated right ventricular systolic pressure from tricuspid regurgitation is normal (<35 mmHg). Aortic Valve The aortic valve is abnormal in structure. The aortic valve exhibits sclerosis. There is mild calcification of the aortic valve. The aortic valve appears trileaflet. Trace aortic valve regurgitation is present. No hemodynamically significant aortic valve stenosis is present. Pulmonic Valve The pulmonic valve is structurally normal with no significant stenosis present. There is moderate pulmonic valve regurgitation present. Pericardium The pericardium is normal. There is no evidence of pericardial effusion. . Greater Vessels Mild dilation of the aortic root is present. Mild dilation of the sinuses of Valsalva is present. Mild dilation of the proximal aorta is present. Mild dilation of the ascending aorta is present. No dilation of the aortic arch is present. The main pulmonary artery is grossly normal. The visualized decending arorta appears grossly normal. Study Quality The study is technically adequate for diagnosis. Wall Scoring Score Index: 1.00 The left ventricular wall motion is normal. Camila Gorman APRN CV ECHO ORDERABLES Final Result documented in this encounter Visit Diagnoses Diagnosis Mitral valve disorder Mitral valve disorders Mitral valve insufficiency, unspecified etiology documented in this encounter Care Teams Chiropractic Doctor Relationship Specialty Start Date End Date Sumit Garza MD [address] [facility] [address] [place] [id number] PCP - General Adolescent Medicine 11/07/18 documented as of this encounter
--- OUTSIDE RECORDS SUMMARY | 2025-06-23 12:30 | XMS_ITS | Encounter Summary ---
Author Organization [facility] Address [address] [place] [address] Care Team Providers Care Machine Strap Buckler Name Role Phone Sumit Garza MD Primary Care Provider + [phone] Reason for Referral * Diagnostic Imaging (Routine) - Authorized Specialty Diagnoses / Procedures Referred By Contac t Referred To Contact Diagnoses Mitral valve disorder Pulmonary hypertension Mixed hyperlipidemia Primary hypertension Procedures Adult Transthoracic Echo Complete W/ Cont if Necessary Per Protocol Krish Gorman APRN [address] [place] [address] Phone: tel: fax: [facility] [address] [place] [address] Phone: tel: fax: Referral ID Status Reason Start Date Expiration Date V isits Requested Visits Authorized [id number] Authorized 06/23/2025 09/22/2026 1 1 Reason for Visit * Reason Comments Mitral Valve Prolapse Pt denies shortnes s of breath, chest pain or palpitationsPt verbally consents to STEFANY. Encounter Details Date Type Department Care Team (Late st Contact Info) Description 06/23/2025 1:30 PM EDT Office Visit [facility] [address] [place] [address] [place] [address] Krish Gorman APRN [address] [place] [address] Mitral valve disorder (Primary Dx); Pulmonary hypertension; Mixed hyperlipidemia; Primary hypertension Social History Tobacco Use Types Packs/Day Years [...] Sign Reading Time Taken Comments Blood Pressure 132/70 06/23/2025 1:26 PM EDT Pulse 70 06/23/2025 1:26 PM EDT Temperature - - Respiratory Rate - - Oxygen Saturation 97% 06/23/2025 1:26 PM EDT Inhaled Oxygen Concentration - - Weight 62.1 kg (137 lb) 06/23/2025 1:26 PM EDT Height 177.8 cm (5' 10 ) 06/23/2025 1:26 PM EDT Body Mass Index 19.66 06/23/2025 1:26 PM EDT documented in this encounter Progress Notes * Krish Gorman APRN - 06/23/2025 1:30 PM EDTAddended by: KRISH GORMAN on: 06/23/2025 02:19 PM Modules accepted: Orders * Krish Gorman APRN - 06/23/2025 1:30 PM EDTAssociated Order(s): ECG 12 Lead Pre-Procedure Diagnose(s): Mitral valve disorder; Primary hypertension Post-Procedure Diagnose(s): Mitral valve disorder; Primary hypertension Images from the original note were not included. Date: 06/23/2025 Name: Shant Valencia : 1950 PCP: Sumit Garza MD REF: No ref. provider found Sleep and/or Cardiology Consulting Provider Note ..Mitral Valve Prolapse (Pt denies shortness of breath, chest pain or palpitations/Pt verbally consents to STEFANY. 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 No Known Allergies Current Outpatient Medications: losartan-hydrochlorothiazide (HYZAAR) 100-25 MG per tablet, Take 1 tablet by mouth once daily, Disp: 90 tablet, Rfl: 0 rivaroxaban (XARELTO) 20 MG tablet, Take 1 tablet by mouth Daily., Disp: 98 tablet, Rfl: 0 sildenafil (Viagra) 100 MG tablet, Take one tabs before sexual intercourse as needed, Disp: 90 tablet, Rfl: 1 Past Medical History: Diagnosis Date Bradycardia Factor 5 Leiden mutation, heterozygous Hyperlipidemia Hypertension Pleural effusion 08/02/2023 Pulmonary embolism Pulmonary hypertension Patient Active Problem List Diagnosis Mitral valve disorder Bradycardia Hyperlipidemia Hypertension Pulmonary hypertension Pulmonary nodule Erectile dysfunction Mitral valve insufficiency Hx pulmonary embolism Factor 5 Leiden mutation, heterozygous Family History Problem Relation Age of Onset Other Mother does not know mothers history Other Father from gunshot wound family history includes Other in his father and mother. Social History Socioeconomic History Marital status: Unknown Number of children: 3 Tobacco Use Smoking status: Every Day Types: Cigars Passive exposure: Current Smokeless tobacco: Never Vaping Use Vaping status: Never Used Substance and Sexual Activity Alcohol use: No Drug use: No Sexual activity: Defer Vital Signs: BP 132/70 (BP Location: Right arm, Patient Position: Sitting, Cuff Size: Adult) Pulse 70 Ht 177.8 cm (70 ) Wt 62.1 kg (137 lb) SpO2 97% BMI 19.66 kg/m?? Estimated body mass index is 19.66 kg/m?? as calculated from the following: Height as of this encounter: 177.8 cm (70 ). Weight as of this encounter: 62.1 kg (137 lb). Physical Exam Constitutional: Appearance: Normal appearance. He is well-developed. HENT: Head: Normocephalic and atraumatic. Eyes: General: No scleral icterus. Pupils: Pupils are equal, round, and reactive to light. Cardiovascular: Rate and Rhythm: Normal rate and regular rhythm. Heart sounds: Murmur heard. Pulmonary: Breath sounds: Normal breath sounds. No wheezing or rhonchi. Musculoskeletal: General: Normal range of motion. Right lower leg: No edema. Left lower leg: No edema. Skin: General: Skin is warm and dry. Capillary Refill: Capillary refill takes less than 2 seconds. Coloration: Skin is not cyanotic. Nails: There is no clubbing. Neurological: Mental Status: He is alert and oriented to person, place, and time. Motor: No weakness. Gait: Gait normal. Psychiatric: Mood and Affect: Mood normal. Behavior: Behavior is cooperative. Thought Content: Thought content normal. Physical Exam Results ECG 12 Lead Date/Time: 06/23/2025 2:17 PM Performed by: Krish Gorman APRN Authorized by: Krish Gorman APRN Comparison: compared with previous ECG from 11/20/2023 Similar to previous ECG Rhythm: sinus bradycardia Rate: bradycardic BPM: 48 ST Segments: ST segments normal T Waves: T waves normal QRS axis: normal Other: no other findings Clinical impression: normal ECG Comments: Bradycardic on EKG but in room heart rate 70. Long history of bradycardia. Tall T waves. Abnormal EKG but similar to November 20, 2023. Assessment and Plan Diagnoses and all orders for this visit: 1. Mitral valve disorder (Primary) - Adult Transthoracic Echo Complete W/ Cont if Necessary Per Protocol; Future - ECG 12 Lead 2. Pulmonary hypertension - Adult Transthoracic Echo Complete W/ Cont if Necessary Per Protocol; Future 3. Mixed hyperlipidemia - Adult Transthoracic Echo Complete W/ Cont if Necessary Per Protocol; Future 4. Primary hypertension - Adult Transthoracic Echo Complete W/ Cont if Necessary Per Protocol; Future - ECG 12 Lead Assessment & Plan Recommendations: ER if symptoms increase and Report if any new/changing symptoms immediately Follow Up Return in about 6 months (around 12/21/2025) for with echo. Patient or patient area representative verbalized consent for the use of Ambient Listening during the visit with Krish Gorman APRN for chart documentation. 06/23/2025 14:11 EDT Krish Gorman APRN 06/23/2025 Please note that this explicitly excludes time spent on other separate billable services such as performing procedures or test interpretation, when applicable. This note was created using dictation software which occasionally transcribes nonsensical phrases. Please contact the provider if any clarification is needed. documented in this encounter Plan of Treatment Upcoming Encounters Date Type Department Care Team (Late st Contact Info) Description 12/22/2025 12:30 PM EDT Ancillary Procedure [facility] [address] [place] [address] [place] [phone] 12/22/2025 1:30 PM EDT Office Visit [facility] [address] [place] [address] [place] [phone] Krish Gorman APRN [address] [place] [address] Scheduled Orders Name Type Priority Associated Diagnoses Orde r Schedule Adult Transthoracic Echo Complete W/ Cont if Necessary Per Protocol Echocardiography Routine Mitral valve disorder Pulmonary hypertension Mixed hyperlipidemia Primary hypertension Expected: 12/20/2025, Expires: 06/23/2026 documented as of this encounter Procedures Procedure Name Priority Date/Time Associated Diagnosis Comments ECG 12-LEAD Routine 06/23/2025 2:17 PM EDT Mitral valve disorder Primary hypertension documented in this encounter Results * ECG 12-LEAD (06/23/2025 2:17 PM EDT) Narrative BH ECG - 06/23/2025 2:17 PM EDT Krish Gorman APRN 06/23/2025 2:19 PM ECG 12 Lead Date/Time: 06/23/2025 2:17 PM Performed by: Krish Gorman APRN Authorized by: Krish Gorman APRN Comparison: compared with previous ECG from 11/20/2023 Similar to previous ECG Rhythm: sinus bradycardia Rate: bradycardic BPM: 48 ST Segments: ST segments normal T Waves: T waves normal QRS axis: normal Other: no other findings Clinical impression: normal ECG Comments: Bradycardic on EKG but in room heart rate 70. Long history of bradycardia. Tall T waves. Abnormal EKG but similar to November 20, 2023. Procedure Note Krish Gorman, CORTNEY - 06/23/2025 1:30 PM EDT Images from the original note were not included. Date: 06/23/2025 Name: Shant Valencia : 1950 PCP: Sumit Garza MD REF: No ref. provider found Sleep and/or Cardiology Consulting Provider Note ..Mitral Valve Prolapse (Pt denies shortness of breath, chest pain orpalpitations/Pt verbally consents to STEFANY. ) History of Present Illness - 6 month follow-up with repeat echo -MVP with severe MR -Declines surgical intervention -Asymptomatic; continues to work daily Cardiology and sleep related problem list MVP with severe MR-declines surgical intervention until he decides toretire relinquish his CDL Thoracic aortic aneurysm - Cardiothoracic SX Mild carotid stenosis 03/2021 Mild pulmonary hypertension Hyperlipidemia Hypertension History of PE - PCP restarted Xarelto Factor 5- PCP Xarelto Bradycardia Cardiomegaly Smoker 06/23/2025 Echo - Severe MR stable 07/31/2023 Echo There are no discontinued medications. No Known Allergies Current Outpatient Medications: losartan-hydrochlorothiazide (HYZAAR) 100-25 MG per tablet, Take 1tablet by mouth once daily, Disp: 90 tablet, Rfl: 0 rivaroxaban (XARELTO) 20 MG tablet, Take 1 tablet by mouth Daily., Disp:98 tablet, Rfl: 0 sildenafil (Viagra) 100 MG tablet, Take one tabs before sexualintercourse as needed, Disp: 90 tablet, Rfl: 1 Past Medical History: Diagnosis Date Bradycardia Factor 5 Leiden mutation, heterozygous Hyperlipidemia Hypertension Pleural effusion 08/02/2023 Pulmonary embolism Pulmonary hypertension Patient Active Problem List Diagnosis Mitral valve disorder Bradycardia Hyperlipidemia Hypertension Pulmonary hypertension Pulmonary nodule Erectile dysfunction Mitral valve insufficiency Hx pulmonary embolism Factor 5 Leiden mutation, heterozygous Family History Problem Relation Age of Onset Other Mother does not know mothers history Other Father from gunshot wound family history includes Other in his father and mother. Social History Socioeconomic History Marital status: Unknown Number of children: 3 Tobacco Use Smoking status: Every Day Types: Cigars Passive exposure: Current Smokeless tobacco: Never Vaping Use Vaping status: Never Used Substance and Sexual Activity Alcohol use: No Drug use: No Sexual activity: Defer Vital Signs: BP 132/70 (BP Location: Right arm, Patient Position: Sitting, Cuff Size:Adult) Pulse 70 Ht 177.8 cm (70 ) Wt 62.1 kg (137 lb) SpO2 97% BMI 19.66 kg/m Estimated body mass index is 19.66 kg/m as calculated from thefollowing: Height as of this encounter: 177.8 cm (70 ). Weight as of this encounter: 62.1 kg (137 lb). Physical Exam Constitutional: Appearance: Normal appearance. He is well-developed. HENT: Head: Normocephalic and atraumatic. Eyes: General: No scleral icterus. Pupils: Pupils are equal, round, and reactive to light. Cardiovascular: Rate and Rhythm: Normal rate and regular rhythm. Heart sounds: Murmur heard. Pulmonary: Breath sounds: Normal breath sounds. No wheezing or rhonchi. Musculoskeletal: General: Normal range of motion. Right lower leg: No edema. Left lower leg: No edema. Skin: General: Skin is warm and dry. Capillary Refill: Capillary refill takes less than 2 seconds. Coloration: Skin is not cyanotic. Nails: There is no clubbing. Neurological: Mental Status: He is alert and oriented to person, place, and time. Motor: No weakness. Gait: Gait normal. Psychiatric: Mood and Affect: Mood normal. Behavior: Behavior is cooperative. Thought Content: Thought content normal. Physical Exam Results ECG 12 Lead Date/Time: 06/23/2025 2:17 PM Performed by: Krish Gorman APRN Authorized by: Krish Gorman APRN Comparison: compared withprevious ECG from 11/20/2023 Similar to previous ECG Rhythm: sinus bradycardia Rate: bradycardic BPM: 48 ST Segments: ST segments normal T Waves: T waves normal QRS axis: normal Other: no other findings Clinical impression: normal ECG Comments: Bradycardic on EKG but in room heart rate 70. Long history ofbradycardia. Tall T waves. Abnormal EKG but similar to October. Assessment and Plan Diagnoses and all orders for this visit: 1. Mitral valve disorder (Primary) - Adult Transthoracic Echo Complete W/ Cont if Necessary Per Protocol;Future - ECG 12 Lead 2. Pulmonary hypertension - Adult Transthoracic Echo Complete W/ Cont if Necessary Per Protocol;Future 3. Mixed hyperlipidemia - Adult Transthoracic Echo Complete W/ Cont if Necessary Per Protocol;Future 4. Primary hypertension - Adult Transthoracic Echo Complete W/ Cont if Necessary Per Protocol;Future - ECG 12 Lead Assessment & Plan Recommendations: ER if symptoms increase and Report if any new/changingsymptoms immediately Follow Up Return in about 6 months (around 12/21/2025) for with echo. Patient or patient area representative verbalized consent for the use ofAmbient Listening during the visit with Krish Gorman APRN forchart documentation. 06/23/2025 14:11 EDT Krish Gorman APRN 06/23/2025 Please note that this explicitly excludes time spent on other separatebillable services such as performing procedures or test interpretation,when applicable. This note was created using dictation software whichoccasionally transcribes nonsensical phrases. Please contact the providerif any clarification is needed. us Krish Gorman APRN ECG ORDERABLES Fin al Result ECG documented in this encounter Visit Diagnoses Diagnosis Mitral valve disorder- Primary Mitral valve disorders Pulmonary hypertension Other chronic pulmonary heart diseases Mixed hyperlipidemia Primary hypertension Unspecified essential hypertension documented in this encounter Care Teams Machine Strap Buckler Relationship Specialty Start Date End Date Sumit Garza MD [address] [facility] [address] [place] [id number] PCP - General Adolescent Medicine 11/07/18 documented as of this encounter
--- OUTSIDE RECORDS SUMMARY | 2025-08-20 11:22 | XMS_ITS | Encounter Summary ---
Author Organization [facility] Address [address] [place] [address] Care Team Providers Care Video Games Storywriter Name Role Phone Sumit Garza MD Primary Care Provider + [phone] Encounter Details Date Type Department Care Team (Latest Contact Info) Description 06/23/2025 Travel Social History Tobacco Use Types Packs/Day Years [...] Description 12/22/2025 12:30 PM EDT Ancillary Procedure [facility] [address] [place] [phone] 12/22/2025 1:30 PM EDT Office Visit [facility] [address] [place] [phone] Camila Gorman APRN [address] [place] [address] documented as of this encounter Visit Diagnoses Not on filedocumented in this encounter Care Teams Video Games Storywriter Relationship Specialty Start Date End Date Sumit Garza MD [address] [place] [address] [place] [address] PCP - General Adolescent Medicine 11/07/18 documented as of this encounter
--- OUTSIDE RECORDS SUMMARY | 2025-08-20 11:22 | XMS_ITS | Clinical Summary ---
Author Organization [facility] Address [address] [place] [address] Care Team Providers Care Glass Block Bender Name Role Phone Sumit Garza MD Primary Care Provider + [phone] Allergies No known active allergies Medications rivaroxaban (XARELTO) 20 MG tablet Take 1 tablet by mouth Daily. 98 tablet 5 Active sildenafil (Viagra) 100 MG tablet Take one tabs before sexual intercourse as needed 90 tablet 1 5 Active losartan-hydroc hlorothiazide (HYZAAR) 100-25 MG per tablet Take 1 tablet by mouth once daily 90 tablet 5 Active Active Problems Problem Noted Date Diagnosed Date [...] self-employed. He is also being followed by [facility] cardiothoracic surgery that I referred him to [...] self-employed. He is also being followed by [facility] cardiothoracic surgery that I referred him to [...] Encounters Date Type Department Care Team Description 06/23/2025 1:30 PM EDT Office Visit [facility] [address] [place] [phone] Camila Gorman APRN Mitral valve disorder (Primary Dx); Pulmonary hypertension; Mixed hyperlipidemia; Primary hypertension 06/23/2025 12:30 PM EDT Ancillary Procedure [facility] [address] [place] [phone] Mitral valve disorder; Mitral valve insufficiency, unspecified etiology 06/23/2025 Travel from Last 3 Months Immunizations Immunization Administration [...] Pulse 70 06/23/2025 1:26 PM EDT Temperature 36.2 C (97.1 F) 07/28/2024 10:43 AM EDT Respiratory Rate 16 08/04/2024 1:36 PM EST Oxygen Saturation 97% 06/23/2025 1:26 PM EDT Inhaled Oxygen Concentration - - Weight 62.1 kg (137 lb) 06/23/2025 1:26 PM EDT Height 177.8 cm (5' 10 ) 06/23/2025 1:26 PM EDT Body Mass Index 19.66 06/23/2025 1:26 PM EDT Plan of Treatment Upcoming Encounters Date Type Department Care Team (Late st Contact Info) Description 12/22/2025 12:30 PM EDT Ancillary Procedure [facility] [address] [place] [phone] 12/22/2025 1:30 PM EDT Office Visit [facility] [address] [place] [phone] Camila Gorman APRN [address] [place] [address] Health Maintenance Due Date Last Done Comments [...] C SCREENING 11/12/2018 COVID-19 Vaccine (2 - Bessy risk series) 02/01/2021 01/04/2021 INFLUENZA VACCINE 04/30/2025 TDAP/TD VACCINES (2 - Td or Tdap) 05/27/2034 024 Procedures Procedure Name Priority Date/Time Associated Diagnosis Comments ECG 12-LEAD Routine 06/23/2025 2:17 PM EDT Mitral valve disorder Primary hypertension ECHO COMPLETE W/ DOPPLER AND COLOR FLOW Routine 06/23/2025 1:12 PM EDT Mitral valve disorder Mitral valve insufficiency, unspecified etiology from Last 3 Months Results * ECG 12-LEAD (06/23/2025 2:17 PM EDT) Narrative ECG - 06/23/2025 2:17 PM EDT Camila Gorman APRN 06/23/2025 2:19 PM ECG 12 Lead Date/Time: 06/23/2025 2:17 PM Performed by: Camila Gorman APRN Authorized by: Camila Gorman APRN Comparison: compared with previous ECG [...] similar to November 20, 2023. Procedure Note Camila Gorman APRN - 06/23/2025 1:30 PM EDT Images from [...] Lead Date/Time: 06/23/2025 2:17 PM Performed by: Camila Gorman APRN Authorized by: Camila Gorman APRN Comparison: compared withprevious ECG from [...] 12/21/2025) for with echo. Patient or patient credit resolution representative verbalized consent for the use ofAmbient Listening during the visit with Camila Gorman APRN forchart documentation. 06/23/2025 14:11 EDT Camila Gorman APRN 06/23/2025 Please note that this explicitly excludes time spent on other separatebillable services such as performing procedures or test interpretation,when applicable. This note was created using dictation software whichoccasionally transcribes nonsensical phrases. Please contact the providerif any clarification is needed. us Camila Gorman APRN ECG ORDERABLES Fin al Result ECG * ECHO COMPLETE W/ DOPPLER AND COLOR [...] LV V1 VTI 24.6 cm Ao pk jamin 178.5 cm/sec Ao max PG 12.9 mmHg [...] Gorman APRN CV ECHO ORDERABLES Final Result from Last 3 Months Insurance MEDICARE A & B [facility] OPTIONS Care Teams Glass Block Bender Relationship Specialty Start Date End Date Sumit Garza MD [facility] [address] [place] [id number] PCP - General Adolescent Medicine 11/07/18
[2025-08-20 11:44] LABS: Hematocrit 38.6 % (42.0-52.0); Hemoglobin 13.1 g/dL (14.1-18.0); Immature Granulocytes % 0.3 %; Mean Corpuscular HGB Conc 33.9 g/dL (31.8-35.4); Mean Corpuscular Hemoglobin 31.3 pg (27.0-31.2); Mean Corpuscular Volume 92.1 fl (80-94); Nucleated Red Blood Cells % 0 %; Platelet Count 187 K/mm3 (142-424); Red Blood Count 4.19 M/mm3 (4.60-6.20); Red Cell Distribution Width-SD 40.8 fL; White Blood Count 6.2 K/mm3 (4.8-10.8)
[2025-08-20 12:30] LABS: Alanine Aminotransferase 12 U/L (12-78); Albumin Level 4.1 g/dl (3.5-5.0); Albumin/Globulin Ratio 1.5 (1.1-1.8); Alkaline Phosphatase 62 U/L (38-126); Anion Gap 7.4 mEq/L (5-15); Aspartate Amino Transferase 27 U/L (17-59); Bilirubin,Total 1.2 mg/dl (0.2-1.3); Blood Urea Nitrogen 13 mg/dl (9-20); Calcium 9.5 mg/dl (8.4-10.2); Carbon Dioxide 27 mmol/L (22.0-30.0); Chloride 99 mmol/L (98-107); Creatinine,Serum 0.80 mg/dl (0.66-1.25); Estimated Glomerular Filt Rate 95 ml/min (>60); GFR (African American) 115 ML/MIN (>60); Globulin 2.7 g/dL (1.3-3.2); Glucose 133 mg/dl (74-100); Magnesium 2.0 mg/dl (1.6-2.3); Potassium 4.4 mmoL/L (3.5-5.1); Sodium 129 mmol/L (136-145); Total Protein,Serum 6.8 g/dl (6.3-8.2)
[2025-08-20 12:45] LABS: Free Thyroxine Index 3.4 ug/dL (5.93-13.13); T4 (Thyroxine) 9.4 ug/dl (5.53-11.0); Triiodothryronine (T3) Uptake 36 % (23.5-40.5)
[2025-08-20 12:58] LABS: Thyroid Stimulating Hormone 1.37 uIU/mL (0.465-4.68)
== END 2025-08-20 23:59 | disposition home or self-care (01) ==
LOC: LAB 11:20
PROVIDERS: PCP Internal Medicine Adolescent Medicine; Visit Provider Internal Medicine Adolescent Medicine
DX: I34.1 Nonrheumatic mitral (valve) prolapse (principal); R42 Dizziness and giddiness; R00.1 Bradycardia, unspecified
CPT/HCPCS: 36415; 80053; 83735; 84436; 84443; 84479; 85025